=== PATIENT | female | born 1985 | race Two or more races ===

== ENCOUNTER 2023-04-27 04:55 | Emergency (ER) | payer BC, OTHER ==
[~2023-04-27] VITALS: Ht 154.9 cm; Wt 93.9 kg
[2023-04-27 05:04] VITALS: BP 147/103; RESP 20; TEMP 97.8; O2SAT 96
[2023-04-27 05:22] LABS: Basophils # (auto) 0.1 10 ^3/uL (0-0.2); Basophils % (auto) 0.6 % (0.0-2.0); Eosinophils # (auto) 0.1 10 ^3/uL (0-0.8); Eosinophils % (auto) 1.7 % (0.0-7.0); Hematocrit 42.5 % (36.0-46.0); Hemoglobin 13.9 g/dL (12.2-16.2); Lymphocytes # (auto) 3.5 10 ^3/uL (0.4-5.4); Lymphocytes % (auto) 38.5 % (10.0-50.0); Mean Corpuscular Hgb Conc. 32.7 g/dL (32.0-36.0); Mean Corpuscular Volume 82.4 fL (80.0-100.0); Monocytes # (auto) 0.5 10 ^3/uL (0-1.3); Monocytes % (auto) 5.2 % (0.0-12.0); Neutrophils # (auto) 4.9 10 ^3/uL (1.6-8.6); Nucleated Red Blood Cells % 0.1 %; Red Blood Cells 5.16 10^6/uL (4.0-5.20); Red Cell Distribution Width 14.7 % (11.8-14.3)
[2023-04-27 05:32] LABS: Chloride 108 mmol/L (98-107); Potassium 3.8 mmol/L (3.5-5.1); Sodium 138 mmol/L (136-145)
[2023-04-27 05:33] LABS: Anion Gap 5 (5-15); Calcium 9.4 mg/dL (8.5-10.1)
[2023-04-27 05:38] LABS: Blood Urea Nitrogen 10 mg/dL (9-23); Glucose 121 mg/dL (74-106)
[2023-04-27 06:15] LABS: BUN/Creatinine Ratio 12.7 (10.0-20.0); Carbon Dioxide 25 mmol/L (20-30)
[2023-04-27 07:02] VITALS: PULSE 103
[2023-04-27] MEDS ORDERED: KETOROLAC TROMETH 60MG/2ML VIAL IM ONE (07:15)
[2023-04-27] MEDS ORDERED: ONDANSETRON ODT 4 MG TAB PO ONE (07:15)
[2023-04-27 08:06] LABS: Albumin 4.5 g/dL (3.2-4.8); Bilirubin, Total 0.5 mg/dL (0.2-1.0); Total Protein 7.4 g/dL (5.7-8.2)
[2023-04-27 08:24] LABS: Bilirubin, Direct 0.1 mg/dL (<0.3)
[2023-04-27] MEDS ORDERED: CIPRSUS OT (08:50)
[2023-04-27] MEDS ORDERED: IBUP-1456 PO (08:50)
[2023-04-27] MEDS ORDERED: ZOFR4T PO (08:50)
== END 2023-04-27 08:52 | disposition home or self-care (01) ==
LOC: ER 04:55
DX: K80.20 Calculus of gallbladder without cholecystitis without obstruction (principal); H60.92 Unspecified otitis externa, left ear; R07.89 Other chest pain; Z91.040 Latex allergy status; Z79.899 Other long term (current) drug therapy
CPT/HCPCS: 36415; 71045; 76705; 80048; 80076; 83690; 84484; 85025; 93005; 96372; 99285; J1885; Q0162

== ENCOUNTER → 2023-04-30 | Outpatient (CLI) | payer BC ==
[~2023-04-30] MED LIST: CIPRSUS OT; IBUP-1456 PO; ZOFR4T PO
[2023-04-30 10:59] LABS: Basophils # (auto) 0.1 10 ^3/uL (0-0.2); Basophils % (auto) 0.8 % (0.0-2.0); Eosinophils # (auto) 0.1 10 ^3/uL (0-0.8); Eosinophils % (auto) 1.3 % (0.0-7.0); Hematocrit 43.9 % (36.0-46.0); Hemoglobin 14.4 g/dL (12.2-16.2); Lymphocytes # (auto) 2.7 10 ^3/uL (0.4-5.4); Lymphocytes % (auto) 34.5 % (10.0-50.0); Mean Corpuscular Hgb Conc. 32.8 g/dL (32.0-36.0); Mean Corpuscular Volume 82.2 fL (80.0-100.0); Monocytes # (auto) 0.5 10 ^3/uL (0-1.3); Monocytes % (auto) 6.1 % (0.0-12.0); Neutrophils # (auto) 4.4 10 ^3/uL (1.6-8.6); Neutrophils % (auto) 57.3 % (37.0-80.0); Nucleated Red Blood Cells % 0.1 %; Red Blood Cells 5.34 10^6/uL (4.0-5.20); Red Cell Distribution Width 14.4 % (11.8-14.3); White Blood Cell 7.7 10^3/uL (4.4-10.8)
[2023-04-30 11:02] LABS: Urine Bacteria NONE SEEN /hpf (None Seen); Urine Blood 1+ /uL (Negative); Urine Clarity Clear (Clear); Urine Color Yellow (Yellow); Urine Mucus FEW (None Seen); Urine Protein, UAD Negative (Negative); Urine Specific Gravity 1.024 (1.001-1.035); Urine Urobilinogen Normal (Negative); Urine WBC 1 /hpf (0 - 5)
[2023-04-30 11:50] LABS: Alanine Aminotransferase 29 U/L (7-40); Albumin 4.7 g/dL (3.2-4.8); Alkaline Phosphatase 75 U/L (46-116); Anion Gap 6 (5-15); Aspartate Aminotransferase 20 U/L (13-40); BUN/Creatinine Ratio 11.9 (10.0-20.0); Blood Urea Nitrogen 10 mg/dL (9-23); Calcium 9.9 mg/dL (8.5-10.1); Carbon Dioxide 27 mmol/L (20-30); Chloride 106 mmol/L (98-107); Cholesterol 177 mg/dL (< 200); Glucose 100 mg/dL (74-106); HDL Cholesterol 33 mg/dL (40-59); LDL Cholesterol 124 mg/dL (< 100); Potassium 4.1 mmol/L (3.5-5.1); Sodium 139 mmol/L (136-145); Triglycerides 201 mg/dL (< 150)
[2023-04-30 11:51] LABS: Bilirubin, Total 0.7 mg/dL (0.2-1.0); T3 Total 1.52 ng/mL (0.60-1.81); Total Protein 7.6 g/dL (5.7-8.2)
[2023-04-30 11:56] LABS: Free T4 (Free Thyroxine) 1.22 ng/dL (0.89-1.76)
== END | disposition home or self-care (01) ==
LOC: LAB 10:20
PROVIDERS: ATTEND Nurse Practitioner Gerontology
DX: Z00.01 Encounter for general adult medical examination with abnormal findings (principal); Z29.9 Encounter for prophylactic measures, unspecified; Z13.1 Encounter for screening for diabetes mellitus
CPT/HCPCS: 36415; 80053; 80061; 81001; 83036; 84439; 84443; 84480; 85025

== ENCOUNTER 2023-05-26 08:27 | Emergency (ER) | payer BC ==
[~2023-05-26] VITALS: Ht 154.9 cm; Wt 92.7 kg
[2023-05-26 09:02] LABS: Urine Bacteria NONE SEEN /hpf (None Seen); Urine Blood 3+ /uL (Negative); Urine Color Red (Yellow); Urine Protein, UAD 1+ (Negative); Urine Urobilinogen Normal (Negative); Urine WBC 24 /hpf (0 - 5)
[2023-05-26 09:04] LABS: Urine Clarity Cloudy (Clear)
[2023-05-26 09:21] VITALS: TEMP 97.7; O2SAT 98
[2023-05-26] MEDS: SODIUM CHLORIDE 0.9% 1,000 ML IV ONE (10:00)
[2023-05-26] MEDS: KETOROLAC TROMETH 30 MG/ML 1ML VIAL IV ONE (10:50)
[2023-05-26] MEDS: ONDANSETRON HCL 4 MG/2 ML VIAL IV ONE (10:50)
[2023-05-26 10:52] VITALS: BP 143/95; PULSE 80; RESP 15
[2023-05-26 10:52] LABS: Basophils # (auto) 0 10 ^3/uL (0-0.2); Basophils % (auto) 0.5 % (0.0-2.0); Eosinophils # (auto) 0.1 10 ^3/uL (0-0.8); Eosinophils % (auto) 1.2 % (0.0-7.0); Hematocrit 42.9 % (36.0-46.0); Hemoglobin 13.9 g/dL (12.2-16.2); Lymphocytes # (auto) 2.2 10 ^3/uL (0.4-5.4); Lymphocytes % (auto) 29.6 % (10.0-50.0); Mean Corpuscular Hemoglobin 27.1 pg (28.0-32.0); Mean Corpuscular Hgb Conc. 32.5 g/dL (32.0-36.0); Mean Corpuscular Volume 83.5 fL (80.0-100.0); Monocytes # (auto) 0.5 10 ^3/uL (0-1.3); Monocytes % (auto) 6.2 % (0.0-12.0); Neutrophils # (auto) 4.7 10 ^3/uL (1.6-8.6); Neutrophils % (auto) 62.5 % (37.0-80.0); Nucleated Red Blood Cells % 0.1 %; Red Blood Cells 5.14 10^6/uL (4.0-5.20); Red Cell Distribution Width 14.4 % (11.8-14.3); White Blood Cell 7.5 10^3/uL (4.4-10.8)
[2023-05-26] MEDS: MORPHINE SULFATE 4 MG/ML SYR/VIAL IV ONE (10:52)
[2023-05-26 12:24] LABS: Chloride 111 mmol/L (98-107); Potassium 4.1 mmol/L (3.5-5.1); Sodium 140 mmol/L (136-145)
[2023-05-26 12:27] LABS: Anion Gap 5 (5-15); Calcium 8.3 mg/dL (8.7-10.4); Carbon Dioxide 24 mmol/L (20-30)
[2023-05-26 12:32] LABS: Alkaline Phosphatase 71 U/L (46-116); Glucose 105 mg/dL (74-106)
[2023-05-26 12:34] LABS: Albumin 4.2 g/dL (3.2-4.8); Aspartate Aminotransferase 14 U/L (13-40); Bilirubin, Total 0.5 mg/dL (0.2-1.0); Total Protein 6.9 g/dL (5.7-8.2)
[2023-05-26 12:40] LABS: Alanine Aminotransferase 16 U/L (7-40); BUN/Creatinine Ratio 8.2 (10.0-20.0); Blood Urea Nitrogen 6 mg/dL (9-23); Lipase 39 U/L (12-53)
[2023-05-26] MEDS ORDERED: ZOFR4T PO (14:00)
[2023-05-26] MEDS ORDERED: HYDR-4902 PO (14:00)
== END 2023-05-26 14:09 | disposition home or self-care (01) ==
LOC: ER 08:27
DX: K80.20 Calculus of gallbladder without cholecystitis without obstruction (principal); N83.02 Follicular cyst of left ovary; Z91.040 Latex allergy status; Z79.899 Other long term (current) drug therapy
CPT/HCPCS: 36415; 74176; 76830; 76856; 80053; 81001; 83690; 85025; 96361; 96374; 96375; 99285; J1885; J2270; J2405; J7030

== ENCOUNTER → 2023-06-12 | Outpatient (CLI) | payer BC ==
[~2023-06-12] MED LIST changes: +HYDR-4902 PO
[2023-06-12 10:18] LABS: Alanine Aminotransferase 34 U/L (7-40); Albumin 4.6 g/dL (3.2-4.8); Alkaline Phosphatase 104 U/L (46-116); Anion Gap 5 (5-15); Aspartate Aminotransferase 22 U/L (13-40); BUN/Creatinine Ratio 9.3 (10.0-20.0); Blood Urea Nitrogen 7 mg/dL (9-23); Calcium 9.5 mg/dL (8.5-10.1); Carbon Dioxide 28 mmol/L (20-30); Chloride 106 mmol/L (98-107); Cholesterol 136 mg/dL (< 200); Glucose 113 mg/dL (74-106); HDL Cholesterol 33 mg/dL (40-59); LDL Cholesterol 89 mg/dL (< 100); Potassium 3.8 mmol/L (3.5-5.1); Sodium 139 mmol/L (136-145); Triglycerides 162 mg/dL (< 150)
[2023-06-12 10:19] LABS: Bilirubin, Total 0.5 mg/dL (0.2-1.0); Total Protein 7.4 g/dL (5.7-8.2)
[2023-06-12 10:21] LABS: Basophils # (auto) 0 10 ^3/uL (0-0.2); Eosinophils # (auto) 0.1 10 ^3/uL (0-0.8); Eosinophils % (auto) 1.3 % (0.0-7.0); Monocytes # (auto) 0.7 10 ^3/uL (0-1.3); Neutrophils # (auto) 5.4 10 ^3/uL (1.6-8.6); Red Blood Cells 5.18 10^6/uL (4.0-5.20)
[2023-06-12 10:23] LABS: Basophils % (auto) 0.5 % (0.0-2.0); Hematocrit 42.7 % (36.0-46.0); Lymphocytes % (auto) 24.1 % (10.0-50.0); Mean Corpuscular Hemoglobin 27.1 pg (28.0-32.0); Mean Corpuscular Hgb Conc. 32.8 g/dL (32.0-36.0); Mean Corpuscular Volume 82.4 fL (80.0-100.0); Monocytes % (auto) 8.4 % (0.0-12.0); Neutrophils % (auto) 65.7 % (37.0-80.0); Nucleated Red Blood Cells % 0.1 %; White Blood Cell 8.2 10^3/uL (4.4-10.8)
[2023-06-12 10:54] LABS: INR 0.99 (0.9-1.15); Partial Thromboplastin Time 30.3 SEC (24.5-34.5); Prothrombin Time 10.4 sec (9.3-11.8)
== END | disposition home or self-care (01) ==
LOC: LAB 09:43
PROVIDERS: ATTEND Internal Medicine Gastroenterology
DX: Z00.01 Encounter for general adult medical examination with abnormal findings (principal); Z29.9 Encounter for prophylactic measures, unspecified; Z13.1 Encounter for screening for diabetes mellitus; R10.9 Unspecified abdominal pain
CPT/HCPCS: 36415; 80053; 80061; 83036; 85025; 85610; 85730

== ENCOUNTER → 2023-06-21 | Outpatient (CLI) | payer BC ==
[2023-06-22 07:06] LABS: HSV 2 IgG Antibody <0.91 index (0.00-0.90)
[2023-06-22 08:06] LABS: RPR Non Reactive (Non Reactive)
[2023-06-23 04:06] LABS: Chlamydia Trachomatis, NAA Negative (Negative); Neisseria gonorrhoeae, NAA Negative (Negative)
== END | disposition home or self-care (01) ==
LOC: LAB 11:58
PROVIDERS: ATTEND Nurse Practitioner Gerontology
DX: Z00.01 Encounter for general adult medical examination with abnormal findings (principal); Z29.9 Encounter for prophylactic measures, unspecified; Z13.1 Encounter for screening for diabetes mellitus
CPT/HCPCS: 36415; 86592; 86695; 86696; 86703; 86704; 86706; 86708; 86803; 87340

== ENCOUNTER 2023-07-28 05:46 | Inpatient (IN) | payer BC ==
[~2023-07-28] VITALS: Ht 154.9 cm; Wt 91.8 kg
[~2023-07-28 05:46] MED LIST changes: +AUG875T PO; +CEFP200T15 PO; -CIPRSUS OT; +ERGO1CAP23 PO; -HYDR-4902 PO; +IBUP-1453 PO; -IBUP-1456 PO; +MET500T PO; +PANT40T PO; -ZOFR4T PO
[2023-07-28 06:22] LABS: Basophils # (auto) 0.1 10 ^3/uL (0-0.2); Basophils % (auto) 0.7 % (0.0-2.0); Eosinophils # (auto) 0.1 10 ^3/uL (0-0.8); Eosinophils % (auto) 0.7 % (0.0-7.0); Hematocrit 41.1 % (36.0-46.0); Hemoglobin 13.7 g/dL (12.2-16.2); Lymphocytes # (auto) 2.5 10 ^3/uL (0.4-5.4); Lymphocytes % (auto) 25.3 % (10.0-50.0); Mean Corpuscular Hemoglobin 27.2 pg (28.0-32.0); Mean Corpuscular Hgb Conc. 33.3 g/dL (32.0-36.0); Mean Corpuscular Volume 81.6 fL (80.0-100.0); Monocytes # (auto) 0.5 10 ^3/uL (0-1.3); Monocytes % (auto) 5.3 % (0.0-12.0); Neutrophils # (auto) 6.7 10 ^3/uL (1.6-8.6); Red Blood Cells 5.03 10^6/uL (4.0-5.20); Red Cell Distribution Width 14.7 % (11.8-14.3); White Blood Cell 9.9 10^3/uL (4.4-10.8)
[2023-07-28 06:44] LABS: Alanine Aminotransferase 21 U/L (7-40); Albumin 4.6 g/dL (3.2-4.8); Alkaline Phosphatase 93 U/L (46-116); Anion Gap 7 (5-15); Aspartate Aminotransferase 16 U/L (13-40); BUN/Creatinine Ratio 11.4 (10.0-20.0); Blood Urea Nitrogen 9 mg/dL (9-23); Carbon Dioxide 26 mmol/L (20-30); Chloride 107 mmol/L (98-107); Glucose 124 mg/dL (74-106); Potassium 3.9 mmol/L (3.5-5.1); Sodium 140 mmol/L (136-145)
[2023-07-28 06:45] LABS: Bilirubin, Total 0.8 mg/dL (0.2-1.0); Total Protein 7.6 g/dL (5.7-8.2)
[2023-07-28] MEDS: SODIUM CHLORIDE 0.9% 1,000 ML IVB ONE (08:44)
[2023-07-28] MEDS: ASPirin 325 MG TAB PO ONE (08:48)
[2023-07-28] MEDS: NITROGLYCERIN 0.4 MG SL TAB SL ONE (08:49)
[2023-07-28] MEDS: LORazepam 2MG/ML-1ML VIAL IV ONE (08:49)
[2023-07-28 08:52] VITALS: BP 167/86; TEMP 98
[2023-07-28 08:53] VITALS: PULSE 76; RESP 18; O2SAT 97
[2023-07-28] MEDS ORDERED: HYDROcodone-ACET 5/325MG TAB PO PRN (09:00)
[2023-07-28] MEDS ORDERED: DOCUSATE SOD 100 MG CAP PO PRN (09:00)
[2023-07-28] MEDS ORDERED: MORPHINE SULFATE INJ 2 MG/ml SYRG IV PRN (09:00)
[2023-07-28] MEDS ORDERED: NITROGLYCERIN 0.4 MG SL TAB SL PRN (09:00)
[2023-07-28] MEDS ORDERED: ACETAMINOPHEN 325 MG TAB PO PRN (09:00)
[2023-07-28] MEDS: SODIUM CHLORIDE 0.9% 1,000 ML IV ONE (09:31)
[2023-07-28] MEDS: PANTOPRAZOLE 40 MG TAB PO ONE (09:31)
[2023-07-28] MEDS: ASPirin-EC 81 mg tab PO SCH (09:34)
[2023-07-28] MEDS: ENOXAPARIN SOD 40 MG/0.4 ML SYRINGE SC SCH (10:31)
[2023-07-28] MEDS: SUCRALFATE 1 GM/10 ML ORAL SUSP PO SCH (12:00)
[2023-07-28] MEDS: HYDROcodone-ACET 10/325MG TAB PO PRN (20:28)
[2023-07-28] MEDS: ONDANSETRON HCL 4 MG/2 ML VIAL IV PRN (20:28)
[2023-07-28] MEDS ORDERED: PANTOPRAZOLE 40 MG TAB PO SCH (22:00)
[2023-07-28] MEDS ORDERED: ATORVASTATIN 20 MG TAB PO SCH (22:00)
[2023-07-29 00:20] VITALS: PULSE 75
[2023-07-29] MEDS ORDERED: PANTOPRAZOLE 40 MG TAB PO SCH (10:00)
== END 2023-07-29 01:17 | disposition left against medical advice (07) | DRG 311 ==
LOC: ER 05:46 → TELE 08:59
PROVIDERS: ADMIT Nurse Practitioner Family; ATTEND Nurse Practitioner Family
DX: I24.9 Acute ischemic heart disease, unspecified (principal); K21.9 Gastro-esophageal reflux disease without esophagitis; Z53.29 Procedure and treatment not carried out because of patient's decision for other reasons; G90.9 Disorder of the autonomic nervous system, unspecified; E66.01 Morbid (severe) obesity due to excess calories; Z91.040 Latex allergy status; Z90.49 Acquired absence of other specified parts of digestive tract; Z68.38 Body mass index [BMI] 38.0-38.9, adult
CPT/HCPCS: 36415; 70450; 71045; 80053; 84484; 85025; 93005; 96374; 96375; G0378; J2405

== ENCOUNTER 2023-08-05 11:22 | Emergency (ER) | payer BC ==
[~2023-08-05] VITALS: Ht 154.9 cm; Wt 91.6 kg
[2023-08-05 12:06] LABS: Basophils # (auto) 0.1 10 ^3/uL (0-0.2); Basophils % (auto) 0.7 % (0.0-2.0); Eosinophils # (auto) 0.1 10 ^3/uL (0-0.8); Eosinophils % (auto) 1.6 % (0.0-7.0); Hematocrit 46.2 % (36.0-46.0); Hemoglobin 15.1 g/dL (12.2-16.2); Mean Corpuscular Hemoglobin 27.1 pg (28.0-32.0); Mean Corpuscular Hgb Conc. 32.6 g/dL (32.0-36.0); Mean Corpuscular Volume 83.2 fL (80.0-100.0); Monocytes # (auto) 0.6 10 ^3/uL (0-1.3); Monocytes % (auto) 7.3 % (0.0-12.0); Neutrophils % (auto) 56.4 % (37.0-80.0); Nucleated Red Blood Cells % 0.1 %; Red Blood Cells 5.56 10^6/uL (4.0-5.20); Red Cell Distribution Width 14.6 % (11.8-14.3); White Blood Cell 8.8 10^3/uL (4.4-10.8)
[2023-08-05 12:27] LABS: Alanine Aminotransferase 29 U/L (7-40); Albumin 5.1 g/dL (3.2-4.8); Alkaline Phosphatase 100 U/L (46-116); Anion Gap 9 (5-15); Aspartate Aminotransferase 27 U/L (13-40); Blood Urea Nitrogen 10 mg/dL (9-23); Calcium 10.2 mg/dL (8.5-10.1); Carbon Dioxide 25 mmol/L (20-30); Chloride 106 mmol/L (98-107); Glucose 105 mg/dL (74-106); Potassium 3.6 mmol/L (3.5-5.1); Sodium 140 mmol/L (136-145)
[2023-08-05 12:28] LABS: Bilirubin, Total 0.4 mg/dL (0.2-1.0); Total Protein 8.3 g/dL (5.7-8.2)
[2023-08-05] MEDS: PANTOPRAZOLE 40 MG TAB PO ONE (17:17)
[2023-08-05] MEDS: MAALOX PLUS or MAALOX 30 ML PO ONE (17:17)
[2023-08-05 17:25] VITALS: BP 135/97; PULSE 75; RESP 17; TEMP 98.7; O2SAT 97
== END 2023-08-05 18:10 | disposition home or self-care (01) ==
LOC: ER 11:22
DX: R07.89 Other chest pain (principal); K21.9 Gastro-esophageal reflux disease without esophagitis; Z98.890 Other specified postprocedural states; Z91.040 Latex allergy status; Z79.899 Other long term (current) drug therapy
CPT/HCPCS: 36415; 71045; 80053; 84484; 85025; 85379; 93005

== ENCOUNTER → 2023-09-10 | Outpatient (CLI) | payer BC | END | disposition home or self-care (01) | LOC: XYW 13:34 | PROVIDERS: ATTEND Student in an Organized Health Care Education/Training Program | DX: Z01.810 Encounter for preprocedural cardiovascular examination (principal); I51.89 Other ill-defined heart diseases | CPT/HCPCS: 93306 ==

== ENCOUNTER 2023-09-23 07:48 | Emergency (ER) | payer BC ==
[~2023-09-23] VITALS: Ht 154.9 cm; Wt 92.0 kg
[2023-09-23 08:12] LABS: Basophils # (auto) 0.1 10 ^3/uL (0-0.2); Eosinophils # (auto) 0.2 10 ^3/uL (0-0.8); Mean Corpuscular Hemoglobin 26.8 pg (28.0-32.0); Monocytes # (auto) 0.5 10 ^3/uL (0-1.3); Neutrophils # (auto) 5.1 10 ^3/uL (1.6-8.6); Red Blood Cells 5.22 10^6/uL (4.0-5.20)
[2023-09-23 08:14] LABS: Basophils % (auto) 0.8 % (0.0-2.0); Eosinophils % (auto) 1.9 % (0.0-7.0); Hematocrit 42.2 % (36.0-46.0); Lymphocytes # (auto) 3.2 10 ^3/uL (0.4-5.4); Lymphocytes % (auto) 35.3 % (10.0-50.0); Mean Corpuscular Hgb Conc. 33.1 g/dL (32.0-36.0); Mean Corpuscular Volume 80.8 fL (80.0-100.0); Monocytes % (auto) 5.8 % (0.0-12.0); Neutrophils % (auto) 56.2 % (37.0-80.0); Nucleated Red Blood Cells % 0.2 %; Red Cell Distribution Width 14.8 % (11.8-14.3); White Blood Cell 9.1 10^3/uL (4.4-10.8)
[2023-09-23 08:20] LABS: Urine Bacteria None Seen /hpf (None Seen)
[2023-09-23 08:30] LABS: Urine Blood Negative /uL (Negative); Urine Clarity Clear (Clear); Urine Color Light-Yellow (Yellow); Urine Protein, UAD Negative (Negative); Urine Specific Gravity 1.009 (1.001-1.035); Urine Urobilinogen Normal (Negative); Urine WBC <1 /hpf (0 - 5)
[2023-09-23 08:37] LABS: Alanine Aminotransferase 32 U/L (7-40); Albumin 4.5 g/dL (3.2-4.8); Alkaline Phosphatase 90 U/L (46-116); Anion Gap 6 (5-15); Aspartate Aminotransferase 22 U/L (13-40); BUN/Creatinine Ratio 10.5 (10.0-20.0); Bilirubin, Total 0.4 mg/dL (0.2-1.0); Blood Urea Nitrogen 8 mg/dL (9-23); Calcium 9.6 mg/dL (8.5-10.1); Carbon Dioxide 24 mmol/L (20-30); Chloride 108 mmol/L (98-107); Glucose 117 mg/dL (74-106); Potassium 3.9 mmol/L (3.5-5.1); Sodium 138 mmol/L (136-145)
[2023-09-23 08:38] LABS: Total Protein 7.4 g/dL (5.7-8.2)
[2023-09-23 11:50] VITALS: BP 144/89; RESP 16; TEMP 97.8; O2SAT 97
[2023-09-23 12:34] LABS: Amphetamine Screen, Urine Neg (NEGATIVE); Barbiturate Scree,Urine Neg (NEGATIVE); Benzodiazephine Screen, Urine Neg (NEGATIVE); Cannabinoid Screen, Urine Neg (NEGATIVE); Cocaine Screen, Urine Neg (NEGATIVE); Opiate Scree,Urine Neg (NEGATIVE); Phencyclidine Screen, Urine Neg (NEGATIVE)
[2023-09-23 13:31] VITALS: PULSE 19
== END 2023-09-23 13:36 | disposition home or self-care (01) ==
LOC: ER 07:48
DX: R07.89 Other chest pain (principal); R10.2 Pelvic and perineal pain; F41.9 Anxiety disorder, unspecified; K21.9 Gastro-esophageal reflux disease without esophagitis; Z91.040 Latex allergy status; Z88.6 Allergy status to analgesic agent; Z88.1 Allergy status to other antibiotic agents; Z88.8 Allergy status to other drugs, medicaments and biological substances; Z90.49 Acquired absence of other specified parts of digestive tract; Z98.51 Tubal ligation status; Z98.890 Other specified postprocedural states
CPT/HCPCS: 36415; 71045; 80053; 80307; 81001; 82962; 84484; 84702; 85025; 93005

== ENCOUNTER → 2023-10-01 | Emergency (ER) | payer BC ==
[~2023-10-01] MED LIST changes: +IOHEXOL 350 MG/ML 100ML IJ ONE
== END | disposition left against medical advice (07) ==
LOC: ER 19:30
DX: R55 Syncope and collapse (principal); Z53.21 Procedure and treatment not carried out due to patient leaving prior to being seen by health care provider

== ENCOUNTER → 2023-10-15 | Outpatient (CLI) | payer BC ==
[~2023-10-15] MED LIST changes: -IOHEXOL 350 MG/ML 100ML IJ ONE
[2023-10-15 09:17] LABS: Alanine Aminotransferase 20 U/L (7-40); Albumin 4.5 g/dL (3.2-4.8); Alkaline Phosphatase 81 U/L (46-116); Anion Gap 7 (5-15); Aspartate Aminotransferase 12 U/L (13-40); Bilirubin, Total 0.8 mg/dL (0.2-1.0); Blood Urea Nitrogen 13 mg/dL (9-23); Calcium 9.6 mg/dL (8.7-10.4); Carbon Dioxide 23 mmol/L (20-30); Chloride 108 mmol/L (98-107); Glucose 107 mg/dL (74-106); Potassium 4.2 mmol/L (3.5-5.1); Sodium 138 mmol/L (136-145); Total Protein 7.2 g/dL (5.7-8.2)
== END | disposition home or self-care (01) ==
LOC: LAB 08:30
PROVIDERS: ATTEND Internal Medicine
DX: R03.0 Elevated blood-pressure reading, without diagnosis of hypertension (principal); R20.0 Anesthesia of skin; R07.9 Chest pain, unspecified; E66.01 Morbid (severe) obesity due to excess calories
CPT/HCPCS: 36415; 80053

== ENCOUNTER → 2023-11-01 | Outpatient (CLI) | payer BC ==
[~2023-11-01] VITALS: Ht 154.9 cm; Wt 91.6 kg
[2023-11-01] MEDS: DOBUTamine 1000MCG/ML 250 ML IV ONE (11:38)
[2023-11-01] MEDS: DOBUTamine 1000MCG/ML 100 ML IV ONE (11:56)
[2023-11-01 12:02] VITALS: BP 151/90
[2023-11-01] MEDS: ATROPINE SULF 0.5 MG/5ML SYR ONE (12:14)
[2023-11-01] MEDS: METOPROLOL TARTRATE 1MG/1ML-5ML VIAL IV ONE (12:14)
== END | disposition home or self-care (01) ==
LOC: XYW 08:04
PROVIDERS: ATTEND Student in an Organized Health Care Education/Training Program
DX: R07.9 Chest pain, unspecified (principal); Z98.51 Tubal ligation status; Z82.49 Family history of ischemic heart disease and other diseases of the circulatory system
CPT/HCPCS: 93017; 93350; J1250; J0461

== ENCOUNTER 2024-03-16 07:14 | Emergency (ER) | payer BC ==
[~2024-03-16] VITALS: Ht 154.9 cm; Wt 72.7 kg
--- NOTE | 2024-03-16 07:21 | ECG ---
[facility] Test Date: 2024-03-16 Test Time: 07:19:54 Pat Name: PRABHJOT FLOYD Department: ER Room: Gender: F Integrated Marketing Specialist: ART : 1985 Requested By: SUHAIL MISTRY Order Number: [id number] Reading MD: Measurements Intervals [place] Rate: 78 P: -27 [place]: 116 QRS: 11 QRSD: 108 T: -18 QT: 459 QTc: 523 Interpretive Statements Sinus rhythm Borderline short [place] interval Low voltage, precordial leads Borderline repol abnormality, diffuse leads Prolonged QT interval Please click the below link to view image of tracing.
--- NOTE | 2024-03-16 07:41 | ED.PDOC ---
History of Present Illness HPI Comments 38 y/o F, with a Hx of anxiety, GERD, cholecystectomy, appendectomy, and gastric sleeve, presents with daughter for complaint of sternal chest pain, left-arm numbness and tingling, dizzy spells, and nausea for 1 day, today. Patient endorses on unprovoked onset of symptoms, yesterday, with no prior Hx of except for arm numbness in the past. Patient comments on pain being "tight" in quality. She refutes any recent sick contact, travel, substance use/exposure, stressors, or strenuous activities along with any additional relevant or pertinent Hx. She denies having any shortness of breath, vomiting, fever, chills, or other associated symptoms o modifiers at this time. Chief Complaint: Chest Pain Time Seen by MD: 07:20 Primary Care Provider: UNKNOWN Reviewed Notes: Nurses Notes, Medications, Allergies Allergies: Coded Allergies: Latex (Verified Allergy, Unknown, 11/01/23) Home Meds Active Scripts Amoxicillin & Pot Clavulanate (AUGMENTIN TABLET) 875 Mg Tb, 875 MG PO BID, #20 TAB Prov:SEVERIANO BISWAS 07/12/23 Ibuprofen (Ibuprofen) 400 Mg Tab, 1 TAB PO Q6HPRN, #20 TAB Prov:STEPHAN MANZANO [facility] 06/30/23 Metronidazole (Metronidazole) 500 Mg Tab, 500 MG PO TID for 7 Days, #21 TAB Prov:STEPHAN MANZANO 06/30/23 Cefpodoxime Proxetil (Cefpodoxime Proxetil) 200 Mg Tab, 1 TAB PO BID for 7 Days, #14 TAB Prov:STEPHAN MANZANO [facility] 06/30/23 Ergocalciferol (VITAMIN D 92929 UNIT) 50,000 [place], [address] UNIT PO Q7D for 30 Days, #14 CAP Prov:STEPHAN MANZANO [facility] 06/30/23 Reported Medications Pantoprazole Sodium Sesquihydr (Pantoprazole Sodium) 40 Mg Tab, 1 TAB PO BID 06/27/23 Information Source: Patient Mode of Arrival: Ambulatory Severity: Moderate Timing: Days Duration: Since onset Prehospital treatment: None Past Medical History PAST MEDICAL HISTORY: Anxiety, Gallstones, GERD Surgical History: Appendectomy, Cholecystectomy, Tubal Ligation Surgical History (Other): gastric sleeve CLERICAL PROOFREADER History: No Pertinent CLERICAL PROOFREADER History Family History Family History: Reviewed,noncontributory to illness Social History Smoker: Non-Smoker Alcohol: Denies ETOH Use Drugs: Denies Drug Use Lives In: Home Cardiovascular: reports: chest pain, dizzy spells Gastrointestinal: reports: nausea Neurological: reports: numbness (left arm ), tingling (left arm ) All Other Systems: Reviewed and Negative (negatvie unless otherwise stated above or in HPI) Physical Exam General Appearance: No Apparent Distress, Obese HEENT: Normal ENT Inspection, Pharynx Normal, TMs Normal Neck: Full Range of Motion, Non-Tender, Normal, Normal Inspection Respiratory: Chest Non-Tender, Lungs Clear, No Accessory Muscle Use, No Respiratory Distress, Normal Breath Sounds Cardiovascular: No Edema, No JVD, No Murmur, No Gallop, Normal Peripheral Pulses, Regular Rate/Rhythm Breast Exam: Deferred Gastrointestinal: No Organomegaly, Non Tender, No Pulsatile Mass, Normal Bowel Sounds, Soft Genitalia: Deferred Pelvic: Deferred Rectal: Deferred Extremities: No calf tenderness, Normal capillary refill, Normal inspection, Normal range of motion, Non-tender, No pedal edema Musculoskeletal : Apperance: Normal Neurologic: Alert, general maintenance mechanic II-XII nml as Tested, No Motor Deficits, Normal Affect, Normal Mood, No Sensory Deficits Cerebellar Function: Normal Reflexes: Normal Skin: Dry, Normal Color, Warm Lymphatic: No Adenopathy Was a procedure done? Was a procedure done?: No EKG EKG #1: Pulse Rate (adult): 78 [place]: Normal Cardiac Rhythm: NSR Block: None Hypertrophy: None ST: Normal EKG #2: Pulse Rate (adult): 73 [place]: Normal Cardiac Rhythm: NSR Block: None Hypertrophy: None ST: Normal Differential Dx Considerations may include: GERD, gastritis, gastroenteritis, CT, ACS, costochondritis, pericarditis, PE, PNA X-Ray, Labs, Meds, VS Vital Signs Date Time Temp Pulse Resp B/P (MAP) Pulse Ox O2 Delivery O2 Flow Rate FiO2 03/16/24 07:43 85 16 98 Room Air* 0 21 03/16/24 07:42 85 16 141/98 (112) 98 03/16/24 07:41 78 03/16/24 07:26 97.7 74 16 150/84 (106) 98 03/16/24 07:19 78 Lab Test 03/16/24 07:28 Range/Units White Blood Count 8.0 4.4-10.8 10^3/uL Red Blood Count 5.21 H 4.0-5.20 10^6/uL Hemoglobin 14.6 12.2-16.2 g/dL Hematocrit 44.5 36.0-46.0 % Mean Corpuscular Volume 85.3 80.0-100.0 fL Mean Corpuscular Hemoglobin 27.9 L 28.0-32.0 pg Mean Corpuscular Hemoglobin Concent 32.8 32.0-36.0 g/dL Red Cell Distribution Width 15.6 H 11.8-14.3 % Platelet Count 332 140-450 10^3/uL Mean Platelet Volume 10.3 6.9-10.8 fL Neutrophils (%) (Auto) 65.0 37.0-80.0 % Lymphocytes (%) (Auto) 28.5 10.0-50.0 % Monocytes (%) (Auto) 5.1 0.0-12.0 % Eosinophils (%) (Auto) 1.0 0.0-7.0 % Basophils (%) (Auto) 0.4 0.0-2.0 % Neutrophils # (Auto) 5.2 1.6-8.6 10 ^3/uL Lymphocytes # (Auto) 2.3 0.4-5.4 10 ^3/uL Monocytes # (Auto) 0.4 0-1.3 10 ^3/uL Eosinophils # (Auto) 0.1 0-0.8 10 ^3/uL Basophils # (Auto) 0 0-0.2 10 ^3/uL Nucleated Red Blood Cells 0.0 % Sodium Level 140 136-145 mmol/L Potassium Level 4.0 3.5-5.1 mmol/L Chloride Level 105 98-107 mmol/L Carbon Dioxide Level 26 20-31 mmol/L Anion Gap 9 5-15 Blood Urea Nitrogen 7 L 9-23 mg/dL Creatinine 0.72 0.550-1.02 mg/dL Glomerular Filtration Rate Calc 111 >90 mL/min BUN/Creatinine Ratio 9.7 L 10.0-20.0 Serum Glucose 108 H 74-106 mg/dL Calcium Level 10.3 8.7-10.4 mg/dL Total Bilirubin 0.6 0.2-1.0 mg/dL Aspartate Amino Transferase (AST) 20 13-40 U/L Alanine Aminotransferase (ALT) 19 7-40 U/L Alkaline Phosphatase 89 46-116 U/L Troponin I High Sensitivity < 3 L </=34 ng/L Total Protein 7.6 5.7-8.2 g/dL Albumin 4.6 3.2-4.8 g/dL Current Medications Medications (Trade) Dose Ordered Sig/[place] Route Start Time Stop Time Status Last Admin Al Hydrox/Mg Hydrox/Simethicone (Maalox Plus) 30 ml ONCE ONCE PO 03/16/24 07:45 03/16/24 07:46 DC 03/16/24 07:42 [place] [id number] Ph: [phone] DIAGNOSTIC IMAGING Diagnostic Imaging Report : [id number] Signed PATIENT: PRABHJOT FLOYD ACCT: [id number] UNIT: [id number] : 1985 LOC: ER ROOM / BED: / AGE / SEX: 38 / F ADM STATUS: REG ER SERVICE 3 ORDERING PHYSICIAN: DENNIS WEBBER MD PROCEDURE(s): CXRP - CHEST PORTABLE REASON: cp ORDER NUMBER(s): [id number], ACCESSION NUMBER(s): [id number] Procedure: XY CHEST PORTABLE 03/16/2024 07:49 AM Indication: cp Comparison: XY CHEST PORTABLE on DOS: 09/23/23, XY CHEST PORTABLE on DOS: 08/05/23, XY CHEST PORTABLE on DOS: 07/28/23 TECHNIQUE: XY CHEST PORTABLE FINDINGS: Medical devices: None. Cardiomediastinal: The heart is normal in size. Pulmonary vasculature is within normal limits. Lungs: No focal pulmonary opacity is seen. The costophrenic angles are clear. No pneumothorax. Bones/soft tissues: No acute abnormality is noted. IMPRESSION: 1. No acute cardiopulmonary disease. ATED BY: JELENA BARKER MD DICTATED DATE/TIME: 03/16/24810 SIGNED BY: JELENA BARKER MD SIGNED DATE/TIME: 12/16/24 0811 CC: Time of 1ST Reevaluation: 07:50 Reevaluation 1ST: Unchanged Patient Education/Counseling: Diagnosis, Treatment Family Education/Counseling: No Family Present Departure 1 Departure Time of Disposition: 08:25 Impression: Primary Impression: GERD (gastroesophageal reflux disease) Disposition: 01 HOME / SELF CARE / HOMELESS Condition: Stable Discharged With: Self Critical Care Note Critical Care Time?: No Stability Stability form required: No Heart Score Heart Score: Heart Score Response (Comments) Value History Slightly Suspicious 0 EKG Normal 0 Age <45 0 Risk Factors No known risk factors 0 Troponin Normal limit 0 Total 0 I personally scribed for DENNIS WEBBER MD ([email or web address]) on 03/16/24 at 07:41. Electronically submitted by Dhruv Flowers ([email or web address]). I personally scribed for DENNIS WEBBER MD ([email or web address]) on 03/16/24 at 08:27. Electronically submitted by Dhruv Flowers ([email or web address]). DENNIS WEBBER MD Mar 16, 2024 07:41
[2024-03-16 07:42] VITALS: BP 141/98
[2024-03-16] MEDS: MAALOX PLUS or MAALOX 30 ML PO ONE (07:42)
[2024-03-16 07:43] VITALS: PULSE 85; RESP 16; O2SAT 98
[2024-03-16 07:55] LABS: Basophils # (auto) 0 10 ^3/uL (0-0.2); Basophils % (auto) 0.4 % (0.0-2.0); Eosinophils # (auto) 0.1 10 ^3/uL (0-0.8); Hematocrit 44.5 % (36.0-46.0); Hemoglobin 14.6 g/dL (12.2-16.2); Lymphocytes # (auto) 2.3 10 ^3/uL (0.4-5.4); Lymphocytes % (auto) 28.5 % (10.0-50.0); Mean Corpuscular Hemoglobin 27.9 pg (28.0-32.0); Mean Corpuscular Hgb Conc. 32.8 g/dL (32.0-36.0); Mean Corpuscular Volume 85.3 fL (80.0-100.0); Monocytes # (auto) 0.4 10 ^3/uL (0-1.3); Monocytes % (auto) 5.1 % (0.0-12.0); Neutrophils # (auto) 5.2 10 ^3/uL (1.6-8.6); Platelet Count (auto) 332 10^3/uL (140-450); Red Blood Cells 5.21 10^6/uL (4.0-5.20); Red Cell Distribution Width 15.6 % (11.8-14.3)
[2024-03-16 08:05] LABS: Alanine Aminotransferase 19 U/L (7-40); Albumin 4.6 g/dL (3.2-4.8); Alkaline Phosphatase 89 U/L (46-116); Anion Gap 9 (5-15); Aspartate Aminotransferase 20 U/L (13-40); BUN/Creatinine Ratio 9.7 (10.0-20.0); Bilirubin, Total 0.6 mg/dL (0.2-1.0); Calcium 10.3 mg/dL (8.7-10.4); Carbon Dioxide 26 mmol/L (20-31); Chloride 105 mmol/L (98-107); Sodium 140 mmol/L (136-145); Total Protein 7.6 g/dL (5.7-8.2)
--- NOTE | 2024-03-16 08:13 | DVH ---
Procedure: XY CHEST PORTABLE 03/16/2024 07:49 AM Indication: cp Comparison: XY CHEST PORTABLE on DOS: 09/23/23, XY CHEST PORTABLE on DOS: 08/05/23, XY CHEST PORTABLE on DOS: 07/28/23 TECHNIQUE: XY CHEST PORTABLE FINDINGS: Medical devices: None. Cardiomediastinal: The heart is normal in size. Pulmonary vasculature is within normal limits. Lungs: No focal pulmonary opacity is seen. The costophrenic angles are clear. No pneumothorax. Bones/soft tissues: No acute abnormality is noted. IMPRESSION: 1. No acute cardiopulmonary disease.
[2024-03-16 08:17] LABS: Blood Urea Nitrogen 7 mg/dL (9-23); Glucose 108 mg/dL (74-106)
[2024-03-16 08:27] VITALS: PULSE 73
--- NOTE | 2024-03-16 15:25 | ECG ---
[facility] Test Date: 2024-03-16 Test Time: 08:12:49 Pat Name: PRABHJOT FLOYD Department: ED Room: Gender: F Station Installer: ALLIE : 1985 Requested By: SUHAIL MISTRY Order Number: [id number] Reading MD: Measurements Intervals [place] Rate: 73 P: 38 [place]: 118 QRS: 81 QRSD: 89 T: 19 QT: 397 QTc: 438 Interpretive Statements Sinus rhythm Borderline short [place] interval Low voltage, precordial leads Borderline T abnormalities, anterior leads Please click the below link to view image of tracing.
== END 2024-03-16 08:38 | disposition home or self-care (01) ==
LOC: ER 07:14
DX: K21.9 Gastro-esophageal reflux disease without esophagitis (principal); Z79.899 Other long term (current) drug therapy; Z90.49 Acquired absence of other specified parts of digestive tract; Z90.89 Acquired absence of other organs; Z98.890 Other specified postprocedural states
CPT/HCPCS: 36415; 71045; 80053; 84484; 85025; 93005

== ENCOUNTER 2024-03-23 18:54 | Emergency (ER) | payer BC ==
[~2024-03-23] VITALS: Ht 154.9 cm; Wt 77.0 kg
--- NOTE | 2024-03-23 20:35 | ED.PDOC ---
History of Present Illness HPI Comments 38 y/o F presents with c/o fever, nonproductive cough, and throat pain for the past 3x days. Patient comments on persisting symptoms for the past few days in addition to endorsement of chest wall pain secondary to cough. She report no additional relevant or pertinent Hx, such as recent sick contact or travel. She denies having any shortness of breath, nausea, vomiting, fever, chills, or other associated symptoms or modifiers at this time. Chief Complaint: Flu like Time Seen by MD: 19:50 Primary Care Provider: UNKNOWN Reviewed Notes: Nurses Notes, Medications, Allergies Allergies: Coded Allergies: Latex (Verified Allergy, Unknown, 11/01/23) Home Meds Active Scripts Amoxicillin & Pot Clavulanate (AUGMENTIN TABLET) 875 Mg Tb, 875 MG PO BID, #20 TAB Prov:SEVERIANO BISWAS 07/12/23 Ibuprofen (Ibuprofen) 400 Mg Tab, 1 TAB PO Q6HPRN, #20 TAB Prov:STEPHAN MANZANO [facility] 06/30/23 Metronidazole (Metronidazole) 500 Mg Tab, 500 MG PO TID for 7 Days, #21 TAB Prov:STEPHAN MANZANO [facility] 06/30/23 Cefpodoxime Proxetil (Cefpodoxime Proxetil) 200 Mg Tab, 1 TAB PO BID for 7 Days, #14 TAB [facility]23 Ergocalciferol (VITAMIN D 34796 UNIT) 50,000 [place], [address] UNIT PO Q7D for 30 Days, #14 CAP Prov:STEPHAN MANZANO [facility] 06/30/23 Reported Medications Pantoprazole Sodium Sesquihydr (Pantoprazole Sodium) 40 Mg Tab, 1 TAB PO BID 06/27/23 Information Source: Patient Mode of Arrival: Ambulatory Severity: Moderate Timing: Days Duration: Since onset Prehospital treatment: None Past Medical History PAST MEDICAL HISTORY: Anxiety, Gallstones, GERD Past Medical History (Other): obesity Surgical History: Appendectomy, Cholecystectomy, Tubal Ligation CASINO FLOOR PERSON History: No Pertinent CASINO FLOOR PERSON History Family History Family History: Reviewed,noncontributory to illness Social History Smoker: Non-Smoker Alcohol: Denies ETOH Use Drugs: Denies Drug Use Lives In: Home Constitutional: reports: fever; denies: chills, diaphoresis, fatigue, malaise, sweats, weakness, others EENTM: reports: throat pain; denies: blurred vision, double vision, ear bleeding, ear discharge, ear drainage, ear pain, ear ringing, eye pain, eye redness, hearing loss, mouth pain, mouth swelling, nasal discharge, nose bleeding, nose congestion, nose pain, photophobia, tearing, throat swelling, voice changes, others Respiratory: reports: cough; denies: hemoptysis, orthopnea, SOB at rest, shortness of breath, SOB with excertion, stridor, wheezing, others Cardiovascular: denies: chest pain, dizzy spells, diaphoresis, Dyspnea on exertion, edema, irregular heart beat, left arm pain, lightheadedness, palpitations, PND, syncope, others Gastrointestinal: denies: abdomen distended, abdominal pain, blood streaked bowels, constipated, diarrhea, dysphagia, difficulty swallowing, hematemesis, melena, nausea, poor appetite, poor fluid intake, rectal bleeding, rectal pain, vomiting, others Genitourinary: denies: abnormal vagina bleeding, burning, dyspareunia, dysuria, flank pain, frequency, hematuria, incontinence, pain, , vagina discharge, urgency, others Neurological: denies: dizziness, fainting, headache, left sided numbness, left sided weakness, numbness, paresthesia, pre-existing deficit, right sided numbness, right sided weakness, seizure, speech problems, tingling, tremors, weakness, others Musculoskeletal: denies: back pain, gout, joint pain, joint swelling, muscle pain, muscle stiffness, neck pain, others Integumetry: denies: bruises, change in color, change in hair/nails, dryness, laceration, lesions, lumps, rash, wounds, others Allergic/Immunocompromised: denies: Difficulty Healing, Frequent Infections, Hives, Itching, others Hematologic/Lymphatic: denies: anemia, blood clots, easy bleeding, easy bruising, swollen glands, others Endocrine: denies: excessive hunger, excessive sweating, excessive thirst, excessive urination, flushing, intolerance to cold, intolerance to heat, unexplained weight gain, unexplained weight loss, others Psychiatric: denies: anxiety, bipolar disorder, depression, hopeless, panic disorder, schizophrenia, sleepless, suicidal, others All Other Systems: Reviewed and Negative Physical Exam General Appearance: No Apparent Distress, Obese HEENT: Normal ENT Inspection, Pharynx Normal, TMs Normal Neck: Full Range of Motion, Non-Tender, Normal, Normal Inspection Respiratory: Chest Non-Tender, Lungs Clear, No Accessory Muscle Use, No Respiratory Distress, Normal Breath Sounds Cardiovascular: No Edema, No JVD, No Murmur, No Gallop, Normal Peripheral Pulses, Regular Rate/Rhythm Breast Exam: Deferred Gastrointestinal: No Organomegaly, Non Tender, No Pulsatile Mass, Normal Bowel Sounds, Soft Genitalia: Deferred Pelvic: Deferred Rectal: Deferred Extremities: No calf tenderness, Normal capillary refill, Normal inspection, Normal range of motion, Non-tender, No pedal edema Musculoskeletal : Apperance: Normal Neurologic: Alert, hammerer helper II-XII nml as Tested, No Motor Deficits, Normal Affect, Normal Mood, No Sensory Deficits Cerebellar Function: Normal Reflexes: Normal Skin: Dry, Normal Color, Warm Lymphatic: No Adenopathy Was a procedure done? Was a procedure done?: No Differential Dx Considerations may include: viral syndrome, URI, strep throat X-Ray, Labs, Meds, VS Vital Signs Date Time Temp Pulse Resp B/P (MAP) Pulse Ox O2 Delivery O2 Flow Rate FiO2 03/23/24 19:19 97.4 108 20 148/90 (109) 98 Lab Test 03/23/24 19:21 Range/Units Influenza Type A Antigen Negative Negative Influenza Type B Antigen Negative Negative SARS-CoV-2 Antigen (Rapid) Negative NEGATIVE X-Ray, Labs, Meds, VS Comment Imaging: X-rays and CT scans were reviewed and interpreted by this provider, imaging shows no fractures and no pathological disease. Pending radiology review. Laboratory: Labs reviewed and interpreted by this provider. No significant abnormalities noted. Patient has prior medical visits reviewed. Med reconciliation performed Vital signs reviewed Time of 1ST Reevaluation: 20:20 Reevaluation 1ST: Unchanged Patient Education/Counseling: Diagnosis, Treatment, Need For Follow Up (Follow up with the primary care doctor in the next 24-48 hours. Return to the emergency department if symptoms worsen in the next 24 hours.) Family Education/Counseling: No Family Present Departure 1 Departure Time of Disposition: 20:48 Impression: Primary Impression: Upper respiratory infection Qualified Codes: J06.9 - Acute upper respiratory infection, unspecified Disposition: HOME / SELF CARE / HOMELESS Condition: Fair e-Prescriptions Ibuprofen (Ibuprofen) 600 Mg Tab 1 TAB PO TID, #30 TAB Prov: LAMAR PERSON 03/23/24 Montelukast Sodium (Singulair) 10 Mg Tab 10 MG PO DAILY PRN, #20 TAB Prov: LAMAR PERSON 03/23/24 Promethazine-Dm (Promethazine Dm 6.25-15 mg/5Ml) 1 Merlene Merlene 5 ML PO TID PRN, #240 ML Prov: LAMAR PERSON 03/23/24 Discharged With: Self Critical Care Note Critical Care Time?: No Stability Stability form required: No Heart Score Heart Score: Heart Score Response (Comments) Value History N/A 0 EKG N/A 0 Age N/A 0 Risk Factors N/A 0 Troponin N/A 0 Total 0 I personally scribed for LAMAR PERSON ([email or web address]) on 03/23/24 at 20:35. Electronically submitted by Dhruv Flowers [email or web address]). LAMAR PERSON Mar 23, 2024 20:35
[2024-03-23 20:41] LABS: COVID19 ANTIGEN SOFIA FIA NEGATIVE (NEGATIVE); Rapid Influenza A Negative (Negative); Rapid Influenza B Negative (Negative)
[2024-03-23] MEDS ORDERED: IBUP-1454 PO (20:50)
[2024-03-23] MEDS ORDERED: PROM1SOL4 PO (20:50)
[2024-03-23] MEDS ORDERED: MONT10TA23 PO (20:50)
[2024-03-23 21:31] VITALS: BP 134/99; PULSE 86; RESP 18; TEMP 98.4; O2SAT 98
== END 2024-03-23 21:36 | disposition home or self-care (01) ==
LOC: ER 18:56
DX: J06.9 Acute upper respiratory infection, unspecified (principal); F41.9 Anxiety disorder, unspecified; K21.9 Gastro-esophageal reflux disease without esophagitis; Z90.49 Acquired absence of other specified parts of digestive tract; Z98.890 Other specified postprocedural states; Z79.899 Other long term (current) drug therapy; Z88.8 Allergy status to other drugs, medicaments and biological substances; Z20.822 Contact with and (suspected) exposure to COVID-19
CPT/HCPCS: 29130; 36415; 87426; 87804

== ENCOUNTER 2024-06-25 14:21 | Emergency (ER) | payer BC ==
[~2024-06-25] VITALS: Ht 154.9 cm; Wt 72.9 kg
[~2024-06-25 14:21] MED LIST changes: +IBUP-1454 PO; +MONT10TA23 PO; +PROM1SOL4 PO
--- NOTE | 2024-06-25 15:05 | ED.PDOC ---
Musculoskeletal HPI Comments 39y F who presents to the ED for chief complaint of LLE pain. Pt had the following ED course: -pt states she has been having bilateral lower extremity toes numbness but has resolved in the left foot but still present on the right foot. The numbness on the right toes radiates up to her right upper extremity above the right knee in the past 1 week. The pain radiates to her mid thoracolumbar region. Denies any fall or trauma or injury. -pt has no associated weakness, or any other focal complaints or associated facial droop or associated vision changes -pt otherwise is [id number] and denies any other symptoms -pt has noted increasing pain with ambulation since but otherwise denies any other symptoms past medical history: HTN, arthritis, anxiety past surgical history: gastric sleeve, tubal ligation, appendectomy medications: denies allergies: denies social history: denies tobacco use, denies Etoh use, denies drug use HPI: Poor Historian. REVIEW OF SYSTEMS: CONSTITUTIONAL: Denies acute: fever, diaphoresis, chills, generalized weakness. HEAD: Denies acute: headache, photophobia Eyes: Denies acute: Double vision, vision loss, eye pain, eye discharge. EARS: Denies acute: tinnitus, hearing loss, ear discharge, ear pain, THROAT: Denies acute: sore throat, swelling, difficulty swallowing , pain with swall owing, change in voice. NECK: Denies acute: neck pain, neck swelling, stiff neck. HEART: Denies acute : chest pain, palpitations, LUNGS: Denies acute: SOB, wheezing, cough, hemoptysis ABDOMEN: Denies acute: abdominal pain, Nausea, Vomiting, diarrhea, melena , hematemesis, hematochezia SKIN: Denies acute: rash, redness, lesions, itchiness. EXTREMITIES: Denies acute: calf pain, , weakness, Denies acute: Neuro: Denies acute: focal neurological deficit, motor or sensory focal neurological deficit, tremors, seizure like activity, confusion, dizziness, change in mental status, loss of bowel or bladder function, cauda equina like symptoms. : Denies acute: dysuria, hematuria, flank pain, increase in urinary frequency. PSYCH: Denies acute: hallucination, suicidal ideation, homicidal ideation. FEMALE: Denies acute: abnormal vaginal bleeding, foul odor, unusual discharge. PHYSICAL EXAM: General: no acute distress, awake and alert. Head: normocephalic, atraumatic. Neck: supple, trachea is midline, no swelling. Throat: Normal phonation. Eyes:, no erythema, no purulent discharge, no proptosis, no icterus. Heart: regular rate, regular rhythm, no significant murmur appreciated. Lungs: no apparent respiratory distress, Able to speak in full sentences. No wheezing, no rhonchi, no crackles. No stridors Clear to auscultation bilaterally. Abdomen: non tender to palpation, non distended, soft, no guarding, no rebound, + bowel sounds. Neuro: Awake, Alert, oriented to name, self, situation, follows commands GCS=15. Speech is normal. Skin: no petechia, no purpura, no cyanosis, non-pale, not jaundice. Lower extremities: --no - Pitting edema no deformity, no focal swelling, no calf TTP. Patient is neurovascularly intact in bilateral lower extremity. Pedal pulses palpable. Sensory and motor are present. Makes eye contact. moves all four extremities. Face: no apparent facial droop. No CVA tenderness to percussion bilaterally. Ambulating in the ED independently. ED COURSE: Chief Complaint: Lower Extremity Time Seen by MD: 15:18 Primary Care Provider: UNKNOWN Reviewed Notes: Nurses Notes, Medications, Allergies Allergies: Coded Allergies: Latex (Verified Allergy, Unknown, 11/01/23) Home Meds Active Scripts Ibuprofen (Ibuprofen) 600 Mg Tab, 1 TAB PO TID, #30 TAB Prov:LAMAR PERSON 03/23/24 Montelukast Sodium (Singulair) 10 Mg Tab, 10 MG PO DAILY PRN, #20 TAB Prov:LAMAR PERSON 03/23/24 Promethazine-Dm (Promethazine Dm 6.25-15 mg/5Ml) 1 Merlene Merlene, 5 ML PO TID PRN, #240 ML Prov:LAMAR PERSON 03/23/24 Amoxicillin & Pot Clavulanate (AUGMENTIN TABLET) 875 Mg Tb, 875 MG PO BID, #20 TAB Prov:SEVERIANO BISWAS 07/12/23 Ibuprofen (Ibuprofen) 400 Mg Tab, 1 TAB PO Q6HPRN, #20 TAB Prov:STEPHAN MANZANO [facility] [place] 06/30/23 Metronidazole (Metronidazole) 500 Mg Tab, 500 MG PO TID for 7 Days, #21 TAB Prov:STEPHAN MANZANO [facility] [place] 06/30/23 Cefpodoxime Proxetil (Cefpodoxime Proxetil) 200 Mg Tab, 1 TAB PO BID for 7 Days, #14 TAB Prov:STEPHAN MANZANO [facility] [place] 06/30/23 Ergocalciferol (VITAMIN D 36071 UNIT) 50,[address] [place], [address] UNIT PO Q7D for 30 Days, #14 CAP Prov:STEPHAN MANZANO 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 Was a procedure done?: No Differential Diagnosis EXT Differential Diagnosis: Deep Vein Thrombosis, Compartment Syndrome, Sprain, Neurovascular injury, Other (Radiculopathy, compartment syndrome, sciatica, spinal cord stenosis, cauda equina) X-Ray, Labs, Meds, VS Vital Signs Date Time Temp Pulse Resp B/P (MAP) Pulse Ox O2 Delivery O2 Flow Rate FiO2 06/25/24 22:32 98.6 70 16 125/80 (95) 98 98.6 06/25/24 21:55 139/77 06/25/24 21:55 68 16 139/77 (97) 96 06/25/24 21:22 98 16 143/111 (122) 98 06/25/24 21:20 Room Air* 0 21 06/25/24 21:10 151/101 06/25/24 21:07 69 16 150/101 (117) 98 06/25/24 20:12 98.6 70 12 148/98 (115) 98 98.6 06/25/24 16:50 75 16 96 Room Air* 0 21 06/25/24 16:50 97.6 75 16 145/91 (109) 96 97.6 06/25/24 14:33 99.8 116 20 134/83 (100) 97 99.8 Lab Test 06/25/24 16:19 06/25/24 15:43 06/25/24 15:11 06/25/24 14:31 Range/Units Lactic Acid Level 1.1 0.4-2.0 mmol/L White Blood Count 10.1 4.4-10.8 10^3/uL Red Blood Count 4.99 4.0-5.20 10^6/uL Hemoglobin 13.7 12.2-16.2 g/dL Hematocrit 41.4 36.0-46.0 % Mean Corpuscular Volume 83.1 80.0-100.0 fL Mean Corpuscular Hemoglobin 27.4 L 28.0-32.0 pg Mean Corpuscular Hemoglobin Concent 33.0 32.0-36.0 g/dL Red Cell Distribution Width 15.0 H 11.8-14.3 % Platelet Count 340 140-450 10^3/uL Mean Platelet Volume 9.4 6.9-10.8 fL Neutrophils (%) (Auto) 65.7 37.0-80.0 % Lymphocytes (%) (Auto) 26.3 10.0-50.0 % Monocytes (%) (Auto) 6.9 0.0-12.0 % Eosinophils (%) (Auto) 0.6 0.0-7.0 % Basophils (%) (Auto) 0.5 0.0-2.0 % Neutrophils # (Auto) 6.7 1.6-8.6 10 ^3/uL Lymphocytes # (Auto) 2.7 0.4-5.4 10 ^3/uL Monocytes # (Auto) 0.7 0-1.3 10 ^3/uL Eosinophils # (Auto) 0.1 0-0.8 10 ^3/uL Basophils # (Auto) 0.1 0-0.2 10 ^3/uL Nucleated Red Blood Cells 0.1 % Sodium Level 143 136-145 mmol/L Potassium Level 4.2 3.5-5.1 mmol/L Chloride Level 106 98-107 mmol/L Carbon Dioxide Level 28 20-31 mmol/L Anion Gap 9 5-15 Blood Urea Nitrogen 13 9-23 mg/dL Creatinine 0.89 0.550-1.02 mg/dL Glomerular Filtration Rate Calc 86 >90 mL/min BUN/Creatinine Ratio 14.6 10.0-20.0 Serum Glucose 100 74-106 mg/dL Calcium Level 9.8 8.7-10.4 mg/dL Magnesium Level 2.1 1.6-2.6 mg/dL Total Bilirubin 0.5 0.2-1.0 mg/dL Aspartate Amino Transferase (AST) 17 13-40 U/L Alanine Aminotransferase (ALT) 15 7-40 U/L Alkaline Phosphatase 83 46-116 U/L C-Reactive Protein High Sensitivity 0.30 <1.0 mg/dL Total Protein 7.6 5.7-8.2 g/dL Albumin 4.8 3.2-4.8 g/dL Urine Color Red H Yellow Urine Clarity Ex.turbid Clear Urine pH 5.5 5.0-9.0 Urine Specific [place] 1.021 1.001-1.035 Urine Protein 2+ H Negative Urine Ketones Negative Negative Urine Blood 3+ H Negative /uL Urine Nitrite Negative Negative Urine Bilirubin Negative Negative Urine Urobilinogen Normal Negative mg/dL Urine Leukocyte Esterase 2+ Negative /uL Urine RBC 5209 0 - 4 /hpf Urine Microscopic WBC 6 H 0-5 /HPF Urine Squamous Epithelial Cells Mod <5 /hpf Urine Bacteria None seen None Seen /hpf Urine Glucose Normal Normal mg/dL POC Glucose 135 H 70-106 mg/dl Current Medications Medications (Trade) Dose Ordered Sig/[place] Route Start Time Stop Time Status Last Admin Ceftriaxone Sodium 50 ml @ 100 mls/hr ONCE ONCE IV 06/25/24 15:45 06/25/24 16:14 DC 06/25/24 17:22 Acetaminophen/ Hydrocodone Bitart ([place] 5/325MG Tab) 1 tab ONCE ONCE PO 06/25/24 17:30 06/25/24 17:31 DC 06/25/24 17:38 Dexamethasone Sodium Phosphate (Decadron Injection) 10 mg STAT ONCE IV 06/25/24 20:45 06/25/24 20:58 DC 06/25/24 21:04 Nitroglycerin (Ntrostat Sublingual) 0.4 mg ONCE ONCE SL 06/25/24 21:10 06/25/24 21:11 DC 06/25/24 21:10 Acetaminophen (Tylenol Tablet) 650 mg ONCE ONCE PO 06/25/24 22:00 06/25/24 22:01 DC 06/25/24 22:08 [place] [phone] Ph: [phone] DIAGNOSTIC IMAGING Diagnostic Imaging Report : [id number] Signed PATIENT: PRABHJOT FLOYD ACCT: [id number] UNIT: [id number] : 1985 LOC: ER ROOM / BED: / AGE / SEX: 39 / F ADM STATUS: REG ER SERVICE 1501 ORDERING PHYSICIAN: MIYA ORELLANA DO PROCEDURE(s): LS2CT - LS SPINE WO CONTRAST REASON: back pain, leg numbness ORDER NUMBER(s): [id number], ACCESSION NUMBER(s): [id number] EXAM: CT Lumbar Spine Without Intravenous Contrast CLINICAL INDICATION: back pain, leg numbness TECHNIQUE: Axial computed tomography images of the lumbar spine without intravenous contrast. This CT exam was performed using one or more of the following dose reduction techniques: automated exposure control, adjustment of the mA and/or kV according to patient size, and/or use of iterative reconstructi on technique. CONTRAST: COMPARISON: None FINDINGS: VERTEBRAE: Unremarkable. No acute fracture. DISCS/SPINAL CANAL/NEURAL FORAMINA: No acute findings. No significant spinal canal stenosis. SOFT TISSUES: Unremarkable. OTHER FINDINGS: . None. IMPRESSION: No acute fracture. ATED BY: MARIA EUGENIA GOMEZ MD DICTATED DATE/TIME: 06/25/241613 SIGNED BY: MARIA EUGENIA GOMEZ MD SIGNED DATE/TIME: 06/25/24 161 CC: [place] [id number] Ph: [phone] DIAGNOSTIC IMAGING Diagnostic Imaging Report : [id number] Signed PATIENT: PRABHJOT FLOYD ACCT: [id number] UNIT: [id number] : 1985 LOC: ER ROOM / BED: / AGE / SEX: 39 / F ADM STATUS: REG ER SERVICE 1501 ORDERING PHYSICIAN: MIYA ORELLANA DO PROCEDURE(s): TS2CT - THORACIC SPINE WO CONTRAS REASON: back pain with leg numbness ORDER NUMBER(s): [id number], ACCESSION NUMBER(s): [id number] CT OF THE THORACIC SPINE WITHOUT CONTRAST HISTORY: back pain with leg numbness COMPARISON: None TECHNIQUE: Axial images through the thoracic spine were obtained without contrast. Coronal and sagittal reformats were obtained. One or more of the following radiation dose reduction techniques were used for this examination: automated exposure control, adjustment of the mA and/or kV according to patient size, use of iterative reconstruction technique. Findings and impression: No grossly displaced fractures, subluxations or bony destructive changes identified. Vertebral body heights appear maintained. The bony spinal canal is patent. If symptoms persist, MRI may be considered to further evaluate. Visualized lungs are grossly clear. ATED BY: LUIS MESA MD DICTATED DATE/TIME: 06/25/241944 SIGNED BY: LUIS MESA MD SIGNED DATE/TIME: 06/25/241944 CC: Time of 1ST Reevaluation: 21:19 (Patient denies cauda equina like symptoms.) Reevaluation 1ST: Unchanged Time of 2ND Reevaluation: 22:43 Reevaluation 2ND: Resolved Patient Education/Counseling: Diagnosis, Treatment Family Education/Counseling: No Family Present Comments Patient presented with the above HPI.--focal neurological complaint a low back pain----workup was initiated. patient was found with the above mentioned diagnosis. the following medications were ordered: please refer to order lists of meds and tests obtained by myself Dr. Orellana. Patient ED course and VS have been stabilized. Patient has been reassessed in the ED and remained in a stable condition. Pertinent incidental findings were discussed with the patient and/or family. Patient/family voices understanding and is agreeable with plan. Patient has been observed in the ED adequate length of time to insure improvement/stability. Escalation of care considered: Consideration of escalation to observation or admission Patient was found with hypertension. Patient states she has noticed that her blood pressure is elevated but she is not on any medications. She was given some nitroglycerin sublingual for treatment of hypertension. Patient tolerated the procedure well. Patient was DISCHARGED home in a stable condition. All the reports of any imaging studies that were ordered by myself were reviewed by myself. Departure 1 Departure Time of Disposition: 21:20 Impression: Primary Impression: Low back pain Additional Impressions: Lower extremity numbness Hypertension Disposition: HOME / SELF CARE / HOMELESS Condition: Stable Additional Instructions: Additional discharge instructions: You MUST follow-up with your primary care/family doctor in 1 to 2 days. If you are unable to see your primary care/family doctor, please return to our emergency room for re-assessment and re-evaluation in 1 to 2 days. Return to the emergency room here in our facility or to the nearest ER [facility] if your symptoms change or worsen. CONSULTATIONS: you MUST Follow-up for consultation as soon as possible with: -cardiology and spine doctor in 1-2 days. Please call for appointment. You MUST call the consultants office yourself to make an appointment. You may need to arrange that through your insurance and/or your primary/family doctor. If you are unable to see the hr business partner consultant in 1 to 2 days, you must return to our emergency room (or any other ER of your choice) for re-assessment and re- evaluation. Adequate fluid hydration. No heavy lifting. Monitor blood pressure at home at least 3 times a day. Below is a copy of your radiological report for follow up: [place] [id number] Ph: [phone] DIAGNOSTIC IMAGING Diagnostic Imaging Report : [id number] Signed PATIENT: PRABHJOT FLOYD ACCT: [id number] UNIT: [id number] : 1985 LOC: ER ROOM / BED: / AGE / SEX: 39 / F ADM STATUS: REG ER SERVICE 1501 ORDERING PHYSICIAN: MIYA ORELLANA DO PROCEDURE(s): LS2CT - LS SPINE WO CONTRAST REASON: back pain, leg numbness ORDER NUMBER(s): [id number], ACCESSION NUMBER(s): [id number] EXAM: CT Lumbar Spine Without Intravenous Contrast CLINICAL INDICATION: back pain, leg numbness TECHNIQUE: Axial computed tomography images of the lumbar spine without intravenous contrast. This CT exam was performed using one or more of the following dose reduction techniques: automated exposure control, adjustment of the mA and/or kV according to patient size, and/or use of iterative reconstruction technique. CONTRAST: COMPARISON: None FINDINGS: VERTEBRAE: Unremarkable. No acute fracture. DISCS/SPINAL CANAL/NEURAL FORAMINA: No acute findings. No significant spinal canal stenosis. SOFT TISSUES: Unremarkable. OTHER FINDINGS: . None. IMPRESSION: No acute fracture. ATED BY: MARIA EUGENIA GOMEZ MD DICTATED DATE/TIME: 06/25/241613 SIGNED BY: MARIA EUGENIA GOMEZ MD SIGNED DATE/TIME: 06/25/241613 CC: [place] [id number] Ph: [phone] DIAGNOSTIC IMAGING Diagnostic Imaging Report : [id number] Signed PATIENT: PRABHJOT FLOYD ACCT: [id number] UNIT: [id number] : 1985 LOC: ER ROOM / BED: / AGE / SEX: 39 / F ADM STATUS: REG ER SERVICE 1501 ORDERING PHYSICIAN: MIYA ORELLANA DO PROCEDURE(s): TS2CT - THORACIC SPINE WO CONTRAS REASON: back pain with leg numbness ORDER NUMBER(s): [id number], ACCESSION NUMBER(s): [id number] CT OF THE THORACIC SPINE WITHOUT CONTRAST HISTORY: back pain with leg numbness COMPARISON: None TECHNIQUE: Axial images through the thoracic spine were obtained without contrast. Coronal and sagittal reformats were obtained. One or more of the following radiation dose reduction techniques were used for this examination: automated exposure control, adjustment of the mA and/or kV according to patient size, use of iterative reconstruction technique. Findings and impression: No grossly displaced fractures, subluxations or bony destructive changes identified. Vertebral body heights appear maintained. The bony spinal canal is patent. If symptoms persist, MRI may be considered to further evaluate. Visualized lungs are grossly clear. ATED BY: LUIS MESA MD DICTATED DATE/TIME: 06/25/241944 SIGNED BY: LUIS MESA MD SIGNED DATE/TIME: 06/25/241944 CC: Discharged With: Self Critical Care Note Critical Care Time?: No I personally scribed for MIYA ORELLANA DO ([email or web address]) on 06/25/24 at 15:05. Electronically submitted by Isi Lockhart ([facility]). I personally scribed for MIYA ORELLANA DO ([email or web address]) on 06/25/24 at 15:19. Electronically submitted by Isi Lockhart ([facility]). I personally scribed for MIYA ORELLANA DO ([email or web address]) on 06/25/24 at 19:52. Electronically submitted by Iis Lockhart ([facility]). I personally scribed for MIYA ORELLANA DO ([email or web address]) on 06/25/24 at 19:59. Electronically submitted by Isi Lockhart ([facility] I personally scribed for MIYA ORELLANA DO ([email or web address]) on 06/25/24 at 21:10. Electronically submitted by Isi Lockhart ([facility]). MIYA ORELLANA DO Jun 25, 2024 15:05
[2024-06-25 15:13] LABS: Urine Bacteria None Seen /hpf (None Seen)
[2024-06-25 15:31] LABS: Urine Blood 3+ /uL (Negative); Urine Clarity Ex.Turbid (Clear); Urine Color Red (Yellow); Urine Protein, UAD 2+ (Negative); Urine Specific Gravity 1.021 (1.001-1.035); Urine Squamous Epithelial Cell MOD /hpf (<5); Urine Urobilinogen Normal (Negative); Urine WBC 6 /HPF (0-5); Urine pH 5.5 (5.0-9.0)
[2024-06-25 15:55] LABS: Basophils # (auto) 0.1 10 ^3/uL (0-0.2); Basophils % (auto) 0.5 % (0.0-2.0); Eosinophils # (auto) 0.1 10 ^3/uL (0-0.8); Eosinophils % (auto) 0.6 % (0.0-7.0); Hematocrit 41.4 % (36.0-46.0); Hemoglobin 13.7 g/dL (12.2-16.2); Lymphocytes # (auto) 2.7 10 ^3/uL (0.4-5.4); Lymphocytes % (auto) 26.3 % (10.0-50.0); Mean Corpuscular Hemoglobin 27.4 pg (28.0-32.0); Mean Corpuscular Volume 83.1 fL (80.0-100.0); Monocytes # (auto) 0.7 10 ^3/uL (0-1.3); Monocytes % (auto) 6.9 % (0.0-12.0); Neutrophils # (auto) 6.7 10 ^3/uL (1.6-8.6); Neutrophils % (auto) 65.7 % (37.0-80.0); Nucleated Red Blood Cells % 0.1 %; Platelet Count (auto) 340 10^3/uL (140-450); Red Blood Cells 4.99 10^6/uL (4.0-5.20); White Blood Cell 10.1 10^3/uL (4.4-10.8)
--- NOTE | 2024-06-25 16:16 | DVH ---
EXAM: CT Lumbar Spine Without Intravenous Contrast CLINICAL INDICATION: back pain, leg numbness TECHNIQUE: Axial computed tomography images of the lumbar spine without intravenous contrast. This CT exam was performed using one or more of the following dose reduction techniques: automated exposu re control, adjustment of the mA and/or kV according to patient size, and/or use of iterative reconst ruction technique. CONTRAST: COMPARISON: None FINDINGS: VERTEBRAE: Unremarkable. No acute fracture. DISCS/SPINAL CANAL/NEURAL FORAMINA: No acute findings. No significant spinal canal stenosis. SOFT TISSUES: Unremarkable. OTHER FINDINGS: . None. IMPRESSION: No acute fracture.
[2024-06-25 16:18] LABS: Alanine Aminotransferase 15 U/L (7-40); Albumin 4.8 g/dL (3.2-4.8); Alkaline Phosphatase 83 U/L (46-116); Anion Gap 9 (5-15); Aspartate Aminotransferase 17 U/L (13-40); BUN/Creatinine Ratio 14.6 (10.0-20.0); Bilirubin, Total 0.5 mg/dL (0.2-1.0); Blood Urea Nitrogen 13 mg/dL (9-23); Calcium 9.8 mg/dL (8.7-10.4); Carbon Dioxide 28 mmol/L (20-31); Chloride 106 mmol/L (98-107); Glucose 100 mg/dL (74-106); Magnesium 2.1 mg/dL (1.6-2.6); Potassium 4.2 mmol/L (3.5-5.1); Sodium 143 mmol/L (136-145); Total Protein 7.6 g/dL (5.7-8.2)
[2024-06-25 16:50] VITALS: PULSE 75; RESP 16; O2SAT 96
[2024-06-25] MEDS: cefTRIAXone 1GM/50ML D5W 50 ML IV ONE (17:19)
[2024-06-25] MEDS: HYDROcodone-ACET 5/325MG TAB PO ONE (17:38)
--- NOTE | 2024-06-25 19:47 | DVH ---
CT OF THE THORACIC SPINE WITHOUT CONTRAST HISTORY: back pain with leg numbness COMPARISON: None TECHNIQUE: Axial images through the thoracic spine were obtained without contrast. Coronal and sagitt al reformats were obtained. One or more of the following radiation dose reduction techniques were use d for this examination: automated exposure control, adjustment of the mA and/or kV according to patie nt size, use of iterative reconstruction technique. Findings and impression: No grossly displaced fractures, subluxations or bony destructive changes identified. Vertebral body heights appear maintained. The bony spinal canal is patent. If symptoms persist, MRI may be considered to further evaluate. Visualized lungs are grossly clear.
[2024-06-25] MEDS: DexAMETHasone SOD PHOS 10MG/1ML VIAL INJ IV ONE (21:04)
[2024-06-25] MEDS: NITROGLYCERIN 0.4 MG SL TAB SL ONE ×2 (21:10→21:57)
[2024-06-25] MEDS: ACETAMINOPHEN 325 MG TAB PO ONE (22:08)
[2024-06-25 22:32] VITALS: BP 125/80; PULSE 70; RESP 16; TEMP 98.6; O2SAT 98
== END 2024-06-25 22:32 | disposition home or self-care (01) ==
LOC: ER 14:21
DX: I10 Essential (primary) hypertension (principal); M54.50 Low back pain, unspecified; R20.2 Paresthesia of skin; F41.9 Anxiety disorder, unspecified; K21.9 Gastro-esophageal reflux disease without esophagitis; Z79.1 Long term (current) use of non-steroidal anti-inflammatories (NSAID); Z79.899 Other long term (current) drug therapy; Z90.49 Acquired absence of other specified parts of digestive tract; Z98.51 Tubal ligation status; Z91.040 Latex allergy status
CPT/HCPCS: 36415; 72128; 72131; 80053; 81001; 82947; 83605; 83735; 85025; 86141; 87086; 96365; 96375; 99285; J0696; J1100; 82962

== ENCOUNTER 2024-08-09 05:20 | Emergency (ER) | payer BC ==
[~2024-08-09] VITALS: Ht 154.9 cm; Wt 70.6 kg
[2024-08-09 05:43] LABS: Urine Bacteria None Seen /hpf (None Seen)
[2024-08-09 05:51] LABS: Urine Blood Negative /uL (Negative); Urine Clarity Clear (Clear); Urine Color Yellow (Yellow); Urine Mucus FEW (None Seen); Urine Protein, UAD TRACE (Negative); Urine Specific Gravity 1.034 (1.001-1.035); Urine Squamous Epithelial Cell FEW /hpf (<5); Urine Urobilinogen Normal (Negative); Urine WBC 1 /HPF (0-5)
--- NOTE | 2024-08-09 07:31 | ED.PDOC ---
History of Present Illness HPI Comments 39F presents to the ER w/ prior MHx of HTN, Arthritis, Anxiety, GERD;SHx of Gastric Sleeve, Tubal Ligation, Appendectomy, Cholecystectomy and the c/c of Urinary. Pt reports on having a burning sensation dueing urination w/ itchiness for the past 3 days. Pt notes on also having light ABD pain as well. Denies chills, fever, N/V/D, SOB, CP or other associated symptom's, modifiers, or recent injuries or sick contact at this time. Chief Complaint: Urinary Time Seen by MD: 06:45 Primary Care Provider: UNKNOWN Reviewed Notes: Nurses Notes, Medications, Allergies Allergies: Coded Allergies: Latex (Verified Allergy, Unknown, 11/01/23) Home Meds Active Scripts Ibuprofen (Ibuprofen) 600 Mg Tab, 1 TAB PO TID, #30 TAB Prov:LAMAR PERSONP 03/23/24 Montelukast Sodium (Singulair) 10 Mg Tab, 10 MG PO DAILY PRN, #20 TAB Prov:LAMAR PERSON [facility] 03/23/24 Promethazine-Dm (Promethazine Dm 6.25-15 mg/5Ml) 1 Merlene Merlene, 5 ML PO TID PRN, #240 ML Prov:LAMAR PERSONP 03/23/24 Amoxicillin & Pot Clavulanate (AUGMENTIN TABLET) 875 Mg Tb, 875 MG PO BID, #20 TAB Prov:SEVERIANO BISWAS 07/12/23 Ibuprofen (Ibuprofen) 400 Mg Tab, 1 TAB PO Q6HPRN, #20 TAB Prov:STEPHAN MANZANO RESIDENT 06/30/23 Metronidazole (Metronidazole) 500 Mg Tab, 500 MG PO TID for 7 Days, #21 TAB Prov:STEPHAN MANZANO RESIDENT 06/30/23 Cefpodoxime Proxetil (Cefpodoxime Proxetil) 200 Mg Tab, 1 TAB PO BID for 7 Days, #14 TAB Prov:STEPHAN MANZANO RESIDENT 06/30/23 Ergocalciferol (VITAMIN D 24720 UNIT) 50,000 [place], [address] UNIT PO Q7D for 30 Days, #14 CAP Prov:STEPHAN MANZANO RESIDENT 06/30/23 Reported Medications Pantoprazole Sodium Sesquihydr (Pantoprazole Sodium) 40 Mg Tab, 1 TAB PO BID 06/27/23 Information Source: Patient Mode of Arrival: Ambulatory Severity: Moderate Timing: Days Duration: Since onset, Days Prehospital treatment: None Past Medical History PAST MEDICAL HISTORY: Anxiety, Arthritis, GERD, HTN Surgical History: Appendectomy, Cholecystectomy, Tubal Ligation Surgical History (Other): Gastric Sleeve CAKE WINDER History: No Pertinent CAKE WINDER History Family History Family History: Reviewed,noncontributory to illness, Unknown Social History Smoker: Non-Smoker Alcohol: Denies ETOH Use Drugs: Denies Drug Use Lives In: Home Constitutional: denies: chills, diaphoresis, fatigue, fever, malaise, sweats, weakness, others EENTM: denies: blurred vision, double vision, ear bleeding, ear discharge, ear drainage, ear pain, ear ringing, eye pain, eye redness, hearing loss, mouth pain, mouth swelling, nasal discharge, nose bleeding, nose congestion, nose pain, photophobia, tearing, throat pain, throat swelling, voice changes, others Respiratory: denies: cough, hemoptysis, orthopnea, SOB at rest, shortness of breath, SOB with excertion, stridor, wheezing, others Cardiovascular: denies: chest pain, dizzy spells, diaphoresis, Dyspnea on exertion, edema, irregular heart beat, left arm pain, lightheadedness, palpitations, PND, syncope, others Gastrointestinal: denies: abdomen distended, abdominal pain, blood streaked bowels, constipated, diarrhea, dysphagia, difficulty swallowing, hematemesis, melena, nausea, poor appetite, poor fluid intake, rectal bleeding, rectal pain, vomiting, others Genitourinary: reports: burning, others (Itchiness); denies: abnormal vagina bleeding, dyspareunia, dysuria, flank pain, frequency, hematuria, incontinence, pain, , vagina discharge, urgency Neurological: denies: dizziness, fainting, headache, left sided numbness, left sided weakness, numbness, paresthesia, pre-existing deficit, right sided numbness, right sided weakness, seizure, speech problems, tingling, tremors, weakness, others Musculoskeletal: denies: back pain, gout, joint pain, joint swelling, muscle pain, muscle stiffness, neck pain, others Integumetry: denies: bruises, change in color, change in hair/nails, dryness, laceration, lesions, lumps, rash, wounds, others Allergic/Immunocompromised: denies: Difficulty Healing, Frequent Infections, Hives, Itching, others Hematologic/Lymphatic: denies: anemia, blood clots, easy bleeding, easy bruising, swollen glands, others Endocrine: denies: excessive hunger, excessive sweating, excessive thirst, excessive urination, flushing, intolerance to cold, intolerance to heat, unexplained weight gain, unexplained weight loss, others Psychiatric: denies: anxiety, bipolar disorder, depression, hopeless, panic disorder, schizophrenia, sleepless, suicidal, others All Other Systems: Reviewed and Negative Physical Exam General Appearance: Moderate Distress, Normal HEENT: Normal ENT Inspection, Pharynx Normal, TMs Normal Neck: Full Range of Motion, Non-Tender, Normal, Normal Inspection Respiratory: Chest Non-Tender, Lungs Clear, No Accessory Muscle Use, No Respiratory Distress, Normal Breath Sounds Cardiovascular: No Edema, No JVD, No Murmur, No Gallop, Normal Peripheral Pulses, Regular Rate/Rhythm Breast Exam: Deferred Gastrointestinal: No Organomegaly, Non Tender, No Pulsatile Mass, Normal Bowel Sounds, Soft Genitalia: Deferred Pelvic: Deferred Rectal: Deferred Extremities: No calf tenderness, Normal capillary refill, Normal inspection, Normal range of motion, Non-tender, No pedal edema Musculoskeletal : Apperance: Normal Neurologic: Alert, front end web developer II-XII nml as Tested, No Motor Deficits, Normal Affect, Normal Mood, No Sensory Deficits Cerebellar Function: Normal Reflexes: Normal Skin: Dry, Normal Color, Warm Peripheral Pulses: 3+ Radial (R), 3+ Radial (L) Lymphatic: No Adenopathy Was a procedure done? Was a procedure done?: No Differential Dx Considerations may include: Urinary tract infection X-Ray, Labs, Meds, VS Vital Signs Date Time Temp Pulse Resp B/P (MAP) Pulse Ox O2 Delivery O2 Flow Rate FiO2 08/09/24 07:14 97.9 93 22 121/84 (96) 98 97.9 08/09/24 07:14 91 18 08/09/24 05:30 97.9 92 20 125/85 (98) 97 97.9 Lab Test 08/09/24 05:28 Range/Units Urine Color Yellow Yellow Urine Clarity Clear Clear Urine pH 6.0 5.0-9.0 Urine Specific [place] 1.034 1.001-1.035 Urine Protein Trace H Negative Urine Ketones Trace Negative Urine Blood Negative Negative /uL Urine Nitrite Negative Negative Urine Bilirubin Negative Negative Urine Urobilinogen Normal Negative mg/dL Urine Leukocyte Esterase 1+ Negative /uL Urine RBC 8 0 - 4 /hpf Urine Microscopic WBC 1 0-5 /HPF Urine Squamous Epithelial Cells Few <5 /hpf Urine Bacteria None seen None Seen /hpf Urine Mucus Few None Seen Urine Glucose Normal Normal mg/dL Patient alert. Complaining of burning on urination. Vitals stable. Answering questions. Urinalysis shows UTI. Was given prescription of Macrobid antibiotic. Explained to the patient. Was told to follow up with her primary care physician. Was told to come back if there is any problem. Time of 1ST Reevaluation: 07:15 Reevaluation 1ST: Improved Patient Education/Counseling: Diagnosis, Treatment, Prognosis Family Education/Counseling: No Family Present Departure 1 Departure Time of Disposition: 09:24 Impression: Primary Impression: Urinary tract infection Qualified Codes: N30.00 - Acute cystitis without hematuria Disposition: 01 HOME / SELF CARE / HOMELESS Condition: Good e-Prescriptions Nitrofurantoin Monohydrate Mac (Macrobid) 100 Mg Cap 100 MG PO BID for 7 Days, #14 CAP Prov: RITESH WINN MD 08/09/24 Discharged With: Self Critical Care Note Critical Care Time?: No Stability Stability form required: No Heart Score Heart Score: Heart Score Response (Comments) Value History N/A 0 EKG N/A 0 Age N/A 0 Risk Factors N/A 0 Troponin N/A 0 Total 0 I personally scribed for RITESH WINN MD ([email or web address]) on 08/09/24 at 07:31. Electronically submitted by Romie Ko ([email or web address]). [facility] WINN MD August 09, 2024 07:31
[2024-08-09] MEDS ORDERED: NITR-87 PO (09:25)
[2024-08-09 09:33] VITALS: BP 129/94; PULSE 71; RESP 20; TEMP 98.6; O2SAT 97
== END 2024-08-09 09:35 | disposition home or self-care (01) ==
LOC: ER 05:20
DX: N39.0 Urinary tract infection, site not specified (principal); L29.9 Pruritus, unspecified; I10 Essential (primary) hypertension; M19.90 Unspecified osteoarthritis, unspecified site; K21.9 Gastro-esophageal reflux disease without esophagitis; F41.9 Anxiety disorder, unspecified; Z79.1 Long term (current) use of non-steroidal anti-inflammatories (NSAID); Z79.899 Other long term (current) drug therapy; Z90.49 Acquired absence of other specified parts of digestive tract; Z98.51 Tubal ligation status; Z98.84 Bariatric surgery status; Z91.040 Latex allergy status
CPT/HCPCS: 81001

== ENCOUNTER 2024-11-15 00:38 | Emergency (ER) | payer BC ==
[~2024-11-15] VITALS: Ht 154.9 cm; Wt 67.4 kg
[~2024-11-15 00:38] MED LIST changes: +NITR-87 PO
--- NOTE | 2024-11-15 01:11 | ED.PDOC ---
Eye-HPI HPI Comments 39-YEAR-OLD FEMALE PRESENTS IN THE ER WITH CC OF FLU LIKE SYMPTOMS, PT REPORTS CHILLS, N/V/D, TAVAREZ, COUGH, NUMBNESS IN THE THROAT X4DAYS. PT IS A&OX4 RR EVEN AND REGULAR, PT DENIES CP SOB, ABDOMINAL PAIN, DIFFICULTY BREATHING, OR RECENT TRAVEL Chief Complaint: Flu like Time Seen by MD: 00:48 Primary Care Provider: UNKNOWN Reviewed Notes: Nurses Notes, Medications, Allergies Allergies: Coded Allergies: Latex (Verified Allergy, Unknown, 11/01/23) Home Meds Active Scripts Ibuprofen (Ibuprofen) 800 Mg Tab, 800 MG PO Q8HP PRN for 7 Days, #21 TAB Prov:HAL ANDRES [facility] 11/15/24 Levofloxacin Hemihydrate (LEVOFLOXACIN) 750 Mg Tab, 1 TAB PO DAILY for 5 Days, #5 TAB Prov:HAL ANDRES [facility] 11/15/24 Nitrofurantoin Monohydrate Mac (Macrobid) 100 Mg Cap, 100 MG PO BID for 7 Days, #14 CAP Prov:RITESH WINN MD 08/09/24 Ibuprofen (Ibuprofen) 600 Mg Tab, 1 TAB PO TID, #30 TAB Prov:LAMAR PERSON [facility] 03/23/24 Montelukast Sodium (Singulair) 10 Mg Tab, 10 MG PO DAILY PRN, #20 TAB Prov:LAMAR PERSON [facility] 03/23/24 Promethazine-Dm (Promethazine Dm 6.25-15 mg/5Ml) 1 Merlene Merlene, 5 ML PO TID PRN, #240 ML Prov:LAMAR PERSON [facility] 03/23/24 Amoxicillin & Pot Clavulanate (AUGMENTIN TABLET) 875 Mg Tb, 875 MG PO BID, #20 TAB Prov:SEVERIANO BISWAS 07/12/23 Ibuprofen (Ibuprofen) 400 Mg Tab, 1 TAB PO Q6HPRN, #20 TAB Prov:STEPHAN MANZANO RESIDENT 06/30/23 Metronidazole (Metronidazole) 500 Mg Tab, 500 MG PO TID for 7 Days, #21 TAB Prov:STEPHAN MANZANO RESIDENT 06/30/23 Cefpodoxime Proxetil (Cefpodoxime Proxetil) 200 Mg Tab, 1 TAB PO BID for 7 Days, #14 TAB Prov:STEPHAN MANZANO RESIDENT 06/30/23 Ergocalciferol (VITAMIN D 20344 UNIT) 50,000 [place], [address] UNIT PO Q7D for 30 Days, #14 CAP Prov:STEPHAN MANZANO RESIDENT 06/30/23 Reported Medications Pantoprazole Sodium Sesquihydr (Pantoprazole Sodium) 40 Mg Tab, 1 TAB PO BID 06/27/23 Information Source: Patient Mode of Arrival: Ambulatory Past Medical History PAST MEDICAL HISTORY: Anxiety, Arthritis, GERD, HTN Surgical History: Appendectomy, Cholecystectomy, Tubal Ligation UMBRELLA FRAME MAKER History: No Pertinent UMBRELLA FRAME MAKER History Family History Family History: Reviewed,noncontributory to illness, Unknown Social History Smoker: Non-Smoker Alcohol: Denies ETOH Use Drugs: Denies Drug Use Lives In: Home All Other Systems: Reviewed and Negative (SEE HPI) Physical Exam General Appearance: No Apparent Distress, Normal HEENT: Pharyngeal Erythema, TMs Normal, Other (TONSIL ERYTHEMA GRADE 3) Neck: Full Range of Motion, Non-Tender, Normal, Normal Inspection Respiratory: Chest Non-Tender, Lungs Clear, No Accessory Muscle Use, No Respiratory Distress, Normal Breath Sounds Cardiovascular: No Edema, No JVD, No Murmur, No Gallop, Normal Peripheral Pulses, Regular Rate/Rhythm Breast Exam: Deferred Gastrointestinal: No Organomegaly, Non Tender, No Pulsatile Mass, Normal Bowel Sounds, Soft Genitalia: Deferred Pelvic: Deferred Rectal: Deferred Extremities: No calf tenderness, Normal capillary refill, Normal inspection, Normal range of motion, Non-tender, No pedal edema Musculoskeletal : Apperance: Normal Neurologic: Alert, research nutritionist II-XII nml as Tested, No Motor Deficits, Normal Affect, Normal Mood, No Sensory Deficits Cerebellar Function: Normal Reflexes: Normal Skin: Dry, Normal Color, Warm Lymphatic: No Adenopathy Was a procedure done? Was a procedure done?: No EENT DIFF Eye: N/A Ear: N/A Sore Throat: Streptococcal, Viral Pharyngitis, URI X-Ray, Labs, Meds, VS Vital Signs Date Time Temp Pulse Resp B/P (MAP) Pulse Ox O2 Delivery O2 Flow Rate FiO2 11/15/24 03:32 99.3 11/15/24 03:32 99.3 122 20 113/85 (94) 98 99.3 11/15/24 02:45 101.0 11/15/24 02:24 101.0 139 101.0 11/15/24 01:21 138 20 97 Room Air 11/15/24 01:21 100.3 138 20 123/81 (95) 97 100.3 11/15/24 00:40 98.9 97 19 141/86 97 98.9 Lab Test 11/15/24 02:30 11/15/24 01:21 11/15/24 01:11 Range/Units White Blood Count 18.7 H 4.4-10.8 10^3/uL Red Blood Count 4.71 4.0-5.20 10^6/uL Hemoglobin 13.2 12.2-16.2 g/dL Hematocrit 39.6 36.0-46.0 % Mean Corpuscular Volume 84.2 80.0-100.0 fL Mean Corpuscular Hemoglobin 28.0 28.0-32.0 pg Mean Corpuscular Hemoglobin Concent 33.3 32.0-36.0 g/dL Red Cell Distribution Width 14.4 H 11.8-14.3 % Platelet Count 267 140-450 10^3/uL Mean Platelet Volume 9.8 6.9-10.8 fL Neutrophils (%) (Auto) 88.9 H 37.0-80.0 % Lymphocytes (%) (Auto) 4.8 L 10.0-50.0 % Monocytes (%) (Auto) 6.2 0.0-12.0 % Eosinophils (%) (Auto) 0.0 0.0-7.0 % Basophils (%) (Auto) 0.1 0.0-2.0 % Neutrophils # (Auto) 16.7 H 1.6-8.6 10 ^3/uL Lymphocytes # (Auto) 0.9 0.4-5.4 10 ^3/uL Monocytes # (Auto) 1.2 0-1.3 10 ^3/uL Eosinophils # (Auto) 0 0-0.8 10 ^3/uL Basophils # (Auto) 0 0-0.2 10 ^3/uL Nucleated Red Blood Cells 0.0 % Sodium Level 137 136-145 mmol/L Potassium Level 3.5 3.5-5.1 mmol/L Chloride Level 107 98-107 mmol/L Carbon Dioxide Level 20 20-31 mmol/L Anion Gap 10 5-15 Blood Urea Nitrogen 11 9-23 mg/dL Creatinine 0.75 0.550-1.02 mg/dL Glomerular Filtration Rate Calc 105 >90 mL/min BUN/Creatinine Ratio 14.7 10.0-20.0 Serum Glucose 121 H 74-106 mg/dL Lactic Acid Level 0.8 0.4-2.0 mmol/L Calcium Level 8.4 L 8.7-10.4 mg/dL Total Bilirubin 0.7 0.2-1.0 mg/dL Aspartate Amino Transferase (AST) 17 13-40 U/L Alanine Aminotransferase (ALT) 14 7-40 U/L Alkaline Phosphatase 71 46-116 U/L Total Protein 6.7 5.7-8.2 g/dL Albumin 4.3 3.2-4.8 g/dL Lipase 36 12-53 U/L Urine Color Yellow Yellow Urine Clarity Turbid H Clear Urine pH 6.0 5.0-9.0 Urine Specific [place] 1.037 H 1.001-1.035 Urine Protein 1+ H Negative Urine Ketones 4+ H Negative Urine Blood 2+ H Negative /uL Urine Nitrite Negative Negative Urine Bilirubin Negative Negative Urine Urobilinogen Normal Negative mg/dL Urine Leukocyte Esterase Negative Negative /uL Urine RBC 31 0 - 4 /hpf Urine Microscopic WBC 3 0-5 /HPF Urine Squamous Epithelial Cells Few <5 /hpf Urine Renal Epithelial Cells Few None Seen /hpf Urine Amorphous Crystals Few None Seen /hpf Urine Bacteria Few H None Seen /hpf Urine Mucus Few None Seen Urine Glucose Trace Normal mg/dL Influenza Type A Antigen Negative Negative Influenza Type B Antigen Negative Negative SARS-CoV-2 Antigen (Rapid) Negative NEGATIVE Current Medications Medications (Trade) Dose Ordered Sig/[place] Route Start Time Stop Time Status Last Admin Sodium Chloride 2,000 ml @ 1,000 mls/hr Q2H ONCE IV 11/15/24 01:15 11/15/24 03:14 DC 11/15/24 01:37 Prochlorperazine Edisylate (Compazine Inj) 5 mg ONCE ONCE IV 11/15/24 01:15 11/15/24 01:16 DC 11/15/24 02:17 Ketorolac Tromethamine (Toradol Injection) 30 mg ONCE ONCE IV 11/15/24 01:15 11/15/24 01:16 DC 11/15/24 02:17 Acetaminophen (Tylenol Tablet Or Capsule) 1,000 mg ONCE ONCE PO 11/15/24 02:30 11/15/24 02:31 DC 11/15/24 02:45 Ceftriaxone Sodium 50 ml @ 100 mls/hr ONCE ONCE IV 11/15/24 02:45 11/15/24 03:14 DC 11/15/24 02:58 X-Ray, Labs, Meds, VS Comment CHEST X-RAY READ PENDING PER [facility] RADIOLOGY COMPUTER SYSTEM IS DOWN. PROVIDER NOTED SOME PERIHILAR EDEMA POSSIBLE ATYPICAL PNEUMONIA. CBC WBCS 28978, LACTIC ACID IS NEGATIVE URINE DOES SHOW POSITIVE UTI. CMP WITHIN NORMAL LIMITS. PATIENT GIVEN 2 L OF NORMAL SALINE, 1 G OF ROCEPHIN IV PIGGYBACK, TORADOL 30 MG IV PUSH, COMPAZINE 5 MG IV PUSH TYLENOL 1 G P.O. FOR FEVER. PATIENT REPORTS IMPROVEMENT IN SYMPTOMS IN HIS REQUESTING DISCHARGE AT THIS TIME. WE WILL SCRIPT TRIAL LEVAQUIN ONCE DAILY X5 DAYS AND IBUPROFEN CONSIDER POSSIBLE COVERAGE FOR UTI PLUS ATYPICAL PNEUMONIA. HE IS TO FOLLOW UP WITH HER PCP IN 2- 3 DAYS FOR REPEAT CBC AND UA. ADVISED ON ER RETURN PRECAUTIONS PATIENT INDICATES UNDERSTANDING AND AGREES WITH DISCHARGE PLAN OF CARE. TAKE MEDICATIONS PRESCRIBED SIDE EFFECTS DISCUSSED. Images Reviewed?: Images reviewed and evaluated by me Time of 1ST Reevaluation: 01:10 Reevaluation 1ST: Unchanged Time of 2ND Reevaluation: 03:51 Reevaluation 2ND: Improved Patient Education/Counseling: Diagnosis, Treatment, Prognosis, Need For Follow Up Family Education/Counseling: No Family Present SEPSIS Sepsis Screen Date sepsis recognized/suspect: Nov 15, 2024 Time Sepsis recognized/suspect: 0040 Recent Procedure: No On Antibiotic Therapy: No Respiratory Rate >20: No Heart Rate >90: No Temp<36 C (96.8 F) or >38.3 C: No SBP <90 or MAP <65 mmHG: No New Acute Mental Status Change: No Is the patient on CPAP, BIPAP,: No Physician Orders Blood Culture (11/15/24 02:23) Chest Two Views Routine (11/15/24 02:26) Vital Signs Date Time Temp Pulse Resp B/P (MAP) Pulse Ox O2 Delivery O2 Flow Rate FiO2 11/15/24 03:32 99.3 11/15/24 03:32 99.3 122 20 113/85 (94) 98 99.3 11/15/24 02:45 101.0 11/15/24 02:24 101.0 139 101.0 11/15/24 01:21 138 20 97 Room Air 11/15/24 01:21 100.3 138 20 123/81 (95) 97 100.3 11/15/24 00:40 98.9 97 19 141/86 97 98.9 Laboratory Tests Test 11/15/24 02:30 Lactic Acid Level 0.8 mmol/L (0.4-2.0) White Blood Count 18.7 10^3/uL (4.4-10.8) H Medications Medications Dose Ordered Sig/[place] Route Start Time Stop Time Status Last Admin Dose Admin Acetaminophen 1,000 mg ONCE ONCE PO 11/15/24 02:30 11/15/24 02:31 DC 11/15/24 02:45 Ceftriaxone Sodium 50 ml @ 100 mls/hr ONCE ONCE IV 11/15/24 02:45 11/15/24 03:14 DC 11/15/24 02:58 Ketorolac Tromethamine 30 mg ONCE ONCE IV 11/15/24 01:15 11/15/24 01:16 DC 11/15/24 02:17 Prochlorperazine Edisylate 5 mg ONCE ONCE IV 11/15/24 01:15 11/15/24 01:16 DC 11/15/24 02:17 Sodium Chloride 2,000 ml @ 1,000 mls/hr Q2H ONCE IV 11/15/24 01:15 11/15/24 03:14 DC 11/15/24 01:37 Departure 1 Departure Time of Disposition: 03:51 Impression: Primary Impression: UTI (urinary tract infection) Qualified Codes: N30.01 - Acute cystitis with hematuria Additional Impressions: Pharyngitis Qualified Codes: J02.9 - Acute pharyngitis, unspecified Leukocytosis Qualified Codes: D72.829 - Elevated white blood cell count, unspecified Dehydration Disposition: HOME / SELF CARE / HOMELESS Condition: Stable Additional Instructions: Your blood work showed elevation in your white blood cells 23834 in the urine does show infection. Follow up with your PCP 3-5 days for repeat CBC and UA. To the ER for continued high fevers difficulty breathing, shortness of breath, chest pain, or any concerning symptoms. e-Prescriptions Ibuprofen (Ibuprofen) 800 Mg Tab 800 MG PO Q8HP PRN for 7 Days, #21 TAB Prov: HAL ANDRES 11/15/24 Levofloxacin Hemihydrate (LEVOFLOXACIN) 750 Mg Tab 1 TAB PO DAILY for 5 Days, #5 TAB Prov: HAL ANDRES 11/15/24 Discharged With: Self Critical Care Note Critical Care Time?: No Stability Stability form required: No HAL ANDRES Nov 15, 2024 01:11
[2024-11-15] MEDS: SODIUM CHLORIDE 0.9% 2,000 ML IV ONE (01:37)
[2024-11-15 01:45] LABS: Urine Amorphous Crystal FEW /hpf (None Seen); Urine Protein, UAD 1+ (Negative)
[2024-11-15 01:56] LABS: COVID19 ANTIGEN SOFIA FIA NEGATIVE (NEGATIVE)
[2024-11-15] MEDS: KETOROLAC TROMETH 30 MG/ML 1ML VIAL IV ONE (02:17)
[2024-11-15] MEDS: PROCHLORPERAZINE EDISYLATE 5 MG/ML 2ML VIAL IV ONE (02:17)
[2024-11-15] MEDS: ACETAMINOPHEN 500 MG TAB or CAP PO ONE (02:45)
[2024-11-15] MEDS: cefTRIAXone 1GM/50ML D5W 50 ML IV ONE (02:58)
[2024-11-15 03:12] LABS: Hematocrit 39.6 % (36.0-46.0); Hemoglobin 13.2 g/dL (12.2-16.2); Mean Corpuscular Hemoglobin 28.0 pg (28.0-32.0); Mean Corpuscular Volume 84.2 fL (80.0-100.0); Nucleated Red Blood Cells % 0.0 %
[2024-11-15 03:21] LABS: Alanine Aminotransferase 14 U/L (7-40); Alkaline Phosphatase 71 U/L (46-116); Anion Gap 10 (5-15); BUN/Creatinine Ratio 14.7 (10.0-20.0); Blood Urea Nitrogen 11 mg/dL (9-23); Carbon Dioxide 20 mmol/L (20-31); Lipase 36 U/L (12-53); Sodium 137 mmol/L (136-145); Total Protein 6.7 g/dL (5.7-8.2)
[2024-11-15 03:22] LABS: Albumin 4.3 g/dL (3.2-4.8); Bilirubin, Total 0.7 mg/dL (0.2-1.0)
[2024-11-15 03:28] LABS: Calcium 8.4 mg/dL (8.7-10.4); Chloride 107 mmol/L (98-107); Glucose 121 mg/dL (74-106); Potassium 3.5 mmol/L (3.5-5.1)
[2024-11-15 03:32] VITALS: BP 113/85; PULSE 122; RESP 20; TEMP 99.3; O2SAT 98
[2024-11-15] MEDS ORDERED: LEVO750T40 PO (03:55)
[2024-11-15] MEDS ORDERED: IBUP-1456 PO (03:55)
--- NOTE | 2024-11-15 04:43 | DVH ---
CHEST RADIOGRAPH Indication: chest pain Technique: Frontal and lateral view of the chest was obtained Comparison: CT THORACIC SPINE WO CONTRAS on DOS: 06/25/24, XY CHEST PORTABLE on DOS: 03/16/24, XY CHES T PORTABLE on DOS: 09/23/23, XY CHEST PORTABLE on DOS: 08/05/23, XY CHEST PORTABLE on DOS: 07/28/23 FINDINGS: Lines and Tubes: None Lungs: Clear Pleura: No effusion. No pneumothorax. Cardiomediastinal contours: Unremarkable Bones: Unremarkable IMPRESSION: 1. No evidence of acute disease.
== END 2024-11-15 04:14 | disposition home or self-care (01) ==
LOC: ER 00:38
DX: N39.0 Urinary tract infection, site not specified (principal); J02.9 Acute pharyngitis, unspecified; D72.829 Elevated white blood cell count, unspecified; E86.0 Dehydration; I10 Essential (primary) hypertension; K21.9 Gastro-esophageal reflux disease without esophagitis; M19.90 Unspecified osteoarthritis, unspecified site; Z20.822 Contact with and (suspected) exposure to COVID-19; Z79.899 Other long term (current) drug therapy; Z90.49 Acquired absence of other specified parts of digestive tract; Z98.51 Tubal ligation status; Z98.890 Other specified postprocedural states
CPT/HCPCS: 36415; 71046; 80053; 81001; 83605; 83690; 85025; 87040; 87426; 87804; 96361; 96365; 96375; 99285; J0696; J0780; J1100; J1885; J7030